=== PATIENT | female | born 1975 | race Caucasian/White ===

== ENCOUNTER 2017-11-02 04:18 | Emergency (ER) | payer SELFPAY ==
[~2017-11-02 04:18] MED LIST: OFLO5DRO45 OT
--- NOTE | 2017-11-02 04:22 | ER Report ---
History and Physical Time Seen By MD: 04:22 HPI/ROS CHIEF COMPLAINT: Lower abdominal pain HISTORY OF PRESENT ILLNESS: 42-year-old female presents ambulatory to the ER complaining of lower back pain. She started her menstrual period 2 days ago. She's been trying to get with her . She did a home test at home yesterday, which was negative. Patient notes severe crampy lower abdominal pain radiating to her back. She notes some dysuria. She's had no fever. She's had nausea but no vomiting. REVIEW OF SYSTEMS: Respiratory: No cough, no dyspnea. Cardiovascular: No chest pain, no palpitations. Gastrointestinal: As above Musculoskeletal: As above Allergies: Coded Allergies: No Known Drug Allergies (Unverified , 11/02/17) Home Meds Active Scripts Lisinopril (LISINOPRIL) 10 Mg Tablet, 10 MG PO QDAY for BP control, #30 TAB Prov:EDY MAR DO 11/02/17 Ondansetron (ZOFRAN ODT) 4 Mg Tab.rapdis, 4 MG PO every 6 hours Y for NAUSEA/ VOMITING, #10 TAB TAKE 1 TABLET BY MOUTH EVERY 12 HOURS Prov:EDY MAR DO 11/02/17 Hydrocodone Bit/Acetaminophen (NORCO 5-325 TABLET) 1 Each Tablet, 1-2 EACH PO Q4H Y for PAIN, #12 TAB Prov:EDY MAR DO 11/02/17 Cephalexin 500 Mg Tab (KEFLEX 500 MG TAB) 500 Mg Tablet, 500 MG PO TID for infection, #28 TAB Prov:EDY MAR DO 11/02/17 Reported Medications Venlafaxine Hcl (EFFEXOR XR) 150 Mg Cap.er.24h, 150 MG PO QDAY 11/02/17 Discontinued Scripts Ofloxacin (OFLOXACIN) 5 Ml Drops, 5 DROP OT BID for 3 Days, #1 BOT 0 Refills 5 drops to left ear twice daily x3 days. Prov:MIGUEL CARMONA DNP, [facility] 06/16/17 Past Medical/Surgical History Hypertension, depression Reviewed Nurses Notes: Yes Old Medical Records Reviewed: Yes Smoking Status: Never Smoker Constitutional Vital Sign - Last 24 Hours 11/02/17 11/02/17 11/02/17 11/02/17 04:22 04:33 04:42 04:48 Temp 98.0 Pulse 95 86 77 Resp 24 B/P (MAP) 204/134 174/116 (135) Pulse Ox 97 97 97 O2 Delivery Room Air 11/02/17 11/02/17 11/02/17 11/02/17 05:00 05:03 05:10 05:15 Pulse 72 74 B/P (MAP) 185/114 (137) 189/122 (144) Pulse Ox 95 92 11/02/17 11/02/17 11/02/17 11/02/17 05:34 05:39 05:44 05:49 Pulse ??? 84 ??? B/P (MAP) 207/122 (150) 147/92 (110) Pulse Ox 97 95 96 11/02/17 11/02/17 05:54 06:07 Pulse 87 85 Resp 16 B/P (MAP) 147/86 (106) Pulse Ox 96 92 O2 Delivery Room Air Physical Exam General Appearance: The patient is alert, has no immediate need for airway protection and no current signs of toxicity. Vital signs stable, afebrile, pulse ox normal Eyes: Pupils equal and round no injection. Respiratory: Chest is non tender, lungs are clear to auscultation. Cardiac: regular rate and rhythm Gastrointestinal: Abdomen is soft, mild bilateral lower quadrant tenderness, no rebound or guarding, bowel sounds intact no masses Musculoskeletal: Neck: Neck is supple and non tender. Extremities have full range of motion and are non tender. Skin: No rashes or lesions. DIFFERENTIAL DIAGNOSIS: After history and physical exam differential diagnosis was considered for abdominal pain including but not limited to appendicitis, cholecystitis, gastritis and urinary tract infection. Additionally,abdominal pain in a female including but not limited to ovarian cyst, pelvic inflammatory disease, ovarian torsion, urinary tract infection, dysmenorrhea and appendicitis. Medical Decision Making Data Points Result Diagram: 11/02/17 0430 11/02/17 0430 Laboratory Hematology Test 11/02/17 04:22 11/02/17 04:30 Urine Color Conce[place]ion Urine Clarity Slightly-cloudy Urine pH 5.0 pH (4.8-9.5) Urine Specific [place] 1.026 Urine Protein 30 mg/dL (NEGATIVE) Urine Glucose (UA) Negative mg/dL (NEGATIVE) Urine Ketones Negative mg/dL (NEGATIVE) Urine Blood Large (NEGATIVE) Urine Nitrite Negative (NEGATIVE) Urine Bilirubin Negative (NEGATIVE) Urine Urobilinogen Negative mg/dL (0.2-1.9) Urine Leukocyte Esterase Moderate (NEGATIVE) Urine RBC 344 /HPF (0-2/HPF) Urine WBC 35 /HPF (0-5/HPF) Urine Squamous Epithelial Cells Many /LPF (</=FEW) Urine Bacteria Negative /HPF (NONE-FEW) Urine Mucus Few /HPF (NONE-FEW) Red Blood Count 4.75 M/uL (4.17-5.56) Mean Corpuscular Volume 85.8 fL (80.0-96.0) Mean Corpuscular Hemoglobin 30.3 pg (26.0-33.0) Mean Corpuscular Hemoglobin Concent 35.3 g/dL (32.0-36.0) Red Cell Distribution Width 14.3 % (11.5-14.5) Mean Platelet Volume 8.4 fL (7.2-11.1) Neutrophils (%) (Auto) 47.9 % (39.4-72.5) Lymphocytes (%) (Auto) 44.6 % (17.6-49.6) Monocytes (%) (Auto) 4.2 % (4.1-12.4) Eosinophils (%) (Auto) 2.1 % (0.4-6.7) Basophils (%) (Auto) 1.2 % (0.3-1.4) Nucleated RBC Relative Count (auto) 0.1 /100WBC Neutrophils # (Auto) 4.9 K/uL (2.0-7.4) Lymphocytes # (Auto) 4.6 K/uL (1.3-3.6) Monocytes # (Auto) 0.4 K/uL (0.3-1.0) Eosinophils # (Auto) 0.2 K/uL (0.0-0.5) Basophils # (Auto) 0.1 K/uL (0.0-0.1) Nucleated RBC Absolute Count (auto) 0.01 K/uL Prothrombin Time 12.8 seconds (12.0-14.4) Prothromb Time International Ratio 0.97 Activated Partial Thromboplast Time 34 seconds (23-35) Sodium Level 141 mmol/L (137-145) Potassium Level 3.5 mmol/L (3.5-5.0) Chloride Level 102 mmol/L (98-107) Carbon Dioxide Level 24 mmol/L (22-31) Blood Urea Nitrogen 12 mg/dl (7-18) Creatinine 0.80 mg/dl (0.52-1.04) Glomerular Filtration Rate Calc > 60.0 Random Glucose 106 mg/dl (75-110) Calcium Level 10.0 mg/dl (8.4-10.2) Total Bilirubin 0.4 mg/dl (0.2-1.3) Aspartate Amino Transf (AST/SGOT) 29 U/L (0-35) Alanine Aminotransferase (ALT/SGPT) 39 U/L (0-56) Alkaline Phosphatase 122 U/L (0-126) Total Protein 8.2 gm/dl (6.3-8.2) Albumin 4.6 g/dl (3.5-5.0) Amylase Level 83 U/L (0-110) Lipase 139 U/L (23-300) Human Chorionic Gonadotropin, Qual Negative (NEGATIVE) Chemistry Test 11/02/17 04:22 11/02/17 04:30 Urine Color [place] Urine Clarity Slightly-cloudy Urine pH 5.0 pH (4.8-9.5) Urine Specific [place] 1.026 Urine Protein 30 mg/dL (NEGATIVE) Urine Glucose (UA) Negative mg/dL (NEGATIVE) Urine Ketones Negative mg/dL (NEGATIVE) Urine Blood Large (NEGATIVE) Urine Nitrite Negative (NEGATIVE) Urine Bilirubin Negative (NEGATIVE) Urine Urobilinogen Negative mg/dL (0.2-1.9) Urine Leukocyte Esterase Moderate (NEGATIVE) Urine RBC 344 /HPF (0-2/HPF) Urine WBC 35 /HPF (0-5/HPF) Urine Squamous Epithelial Cells Many /LPF (</=FEW) Urine Bacteria Negative /HPF (NONE-FEW) Urine Mucus Few /HPF (NONE-FEW) White Blood Count 10.3 k/uL (4.5-11.0) Red Blood Count 4.75 M/uL (4.17-5.56) Hemoglobin 14.4 g/dL (12.0-16.0) Hematocrit 40.7 % (34.0-47.0) Mean Corpuscular Volume 85.8 fL (80.0-96.0) Mean Corpuscular Hemoglobin 30.3 pg (26.0-33.0) Mean Corpuscular Hemoglobin Concent 35.3 g/dL (32.0-36.0) Red Cell Distribution Width 14.3 % (11.5-14.5) Platelet Count 356 K/uL (150-450) Mean Platelet Volume 8.4 fL (7.2-11.1) Neutrophils (%) (Auto) 47.9 % (39.4-72.5) Lymphocytes (%) (Auto) 44.6 % (17.6-49.6) Monocytes (%) (Auto) 4.2 % (4.1-12.4) Eosinophils (%) (Auto) 2.1 % (0.4-6.7) Basophils (%) (Auto) 1.2 % (0.3-1.4) Nucleated RBC Relative Count (auto) 0.1 /100WBC Neutrophils # (Auto) 4.9 K/uL (2.0-7.4) Lymphocytes # (Auto) 4.6 K/uL (1.3-3.6) Monocytes # (Auto) 0.4 K/uL (0.3-1.0) Eosinophils # (Auto) 0.2 K/uL (0.0-0.5) Basophils # (Auto) 0.1 K/uL (0.0-0.1) Nucleated RBC Absolute Count (auto) 0.01 K/uL Prothrombin Time 12.8 seconds (12.0-14.4) Prothromb Time International Ratio 0.97 Activated Partial Thromboplast Time 34 seconds (23-35) Glomerular Filtration Rate Calc > 60.0 Calcium Level 10.0 mg/dl (8.4-10.2) Total Bilirubin 0.4 mg/dl (0.2-1.3) Aspartate Amino Transf (AST/SGOT) 29 U/L (0-35) Alanine Aminotransferase (ALT/SGPT) 39 U/L (0-56) Alkaline Phosphatase 122 U/L (0-126) Total Protein 8.2 gm/dl (6.3-8.2) Albumin 4.6 g/dl (3.5-5.0) Amylase Level 83 U/L (0-110) Lipase 139 U/L (23-300) Human Chorionic Gonadotropin, Qual Negative (NEGATIVE) Coagulation Test 11/02/17 04:30 Prothrombin Time 12.8 seconds Prothromb Time International Ratio 0.97 Activated Partial Thromboplast Time 34 seconds Urinalysis Test 11/02/17 04:22 Urine Color [place] Urine Clarity Slightly-cloudy Urine pH 5.0 pH (4.8-9.5) Urine Specific [place] 1.026 Urine Protein 30 mg/dL (NEGATIVE) Urine Glucose (UA) Negative mg/dL (NEGATIVE) Urine Ketones Negative mg/dL (NEGATIVE) Urine Blood Large (NEGATIVE) Urine Nitrite Negative (NEGATIVE) Urine Bilirubin Negative (NEGATIVE) Urine Urobilinogen Negative mg/dL (0.2-1.9) Urine Leukocyte Esterase Moderate (NEGATIVE) Urine RBC 344 /HPF (0-2/HPF) Urine WBC 35 /HPF (0-5/HPF) Urine Squamous Epithelial Cells Many /LPF (</=FEW) Urine Bacteria Negative /HPF (NONE-FEW) Urine Mucus Few /HPF (NONE-FEW) ED Course/Re-evaluation Clinical Indication for ER IV: Hydration, IV Access ED Course Patient was admitted to an examination room. H&P was done. The differential diagnoses was considered. On clinical examination. Patient has a benign nonsurgical abdomen. Patient's diagnostic studies show normal white blood cell count, normal H&H, normal LFTs and lipase. Her urinalysis shows a hint of infection. Serum is negative. Patient's treated with IV fluid hydration, Toradol and Dilaudid. Her results are reviewed with her. Patient advised to follow-up with [facility] for continued dysfunctional uterine bleeding, dysmenorrhea. Patient be treated for urinary tract infection. Decision to Disposition Date: Nov 02, 2017 Decision to Disposition Time: 05:11 Depart Departure Latest Vital Signs Vital Signs Date Time Temp Pulse Resp B/P (MAP) Pulse Ox O2 Delivery O2 Flow Rate FiO2 11/02/17 06:07 85 16 147/86 (106) 92 Room Air 11/02/17 04:22 98.0 Impression: Primary Impression: Dysmenorrhea Additional Impressions: Urinary tract infection Hypertension Condition: Improved Disposition: HOME OR SELF-CARE Referrals: ANTONETTE GRAY (PCP) DERICK BALDERRAMA MD New Scripts Lisinopril (LISINOPRIL) 10 Mg Tablet 10 MG PO QDAY for BP control, #30 TAB Prov: EDY MAR DO 11/02/17 Ondansetron (ZOFRAN ODT) 4 Mg Tab.rapdis 4 MG PO every 6 hours Y for NAUSEA/VOMITING, #10 TAB TAKE 1 TABLET BY MOUTH EVERY 12 HOURS Prov: EDY MAR 11/02/17 Hydrocodone Bit/Acetaminophen (NORCO 5-325 TABLET) 1 Each Tablet 1-2 EACH PO Q4H Y for PAIN, #12 TAB Prov: EDY MAR 11/02/17 Cephalexin 500 Mg Tab (KEFLEX 500 MG TAB) 500 Mg Tablet 500 MG PO TID for infection, #28 TAB Prov: EDY MAR 11/02/17 Patient Instructions: Abdominal Pain (ED), Dysmenorrhea (ED), Urinary Tract Infection in Women (ED) Additional Instructions: Take ibuprofen 200 mg 3 tablets 3 times a day for inflammatory pain relief Take antibiotics until gone Follow-up with your primary care and [facility] if your symptoms do not improve in 3 -5 days Problem Qualifiers Additional Impressions: Urinary tract infection Urinary tract infection type: acute cystitis Hematuria presence: with hematuria Qualified Codes: N30.01 - Acute cystitis with hematuria Hypertension Hypertension type: unspecified Qualified Codes: I10 - Essential (primary) hypertension EDY MAR Eder GONZALEZ Nov 02, 2017 04:22
[2017-11-02] MEDS ORDERED: NS(*) 0.9% 1000 ML BAG 1,000 ML IV ONE (04:27)
[2017-11-02] MEDS ORDERED: VENL150C61 PO (04:29)
[2017-11-02] MEDS ORDERED: KETOROLAC 30 MG/ML VIAL IVP ONE (04:30)
[2017-11-02] MEDS ORDERED: fentaNYL CITR 100 MCG/2 ML AMP IVP ONE (04:30)
[2017-11-02] MEDS ORDERED: ONDANSETRON 4 MG/2 ML VIAL IVP ONE (04:30)
[2017-11-02 04:44] LABS: PLATELET COUNT, AUTOMATED 356 K/uL (150-450)
[2017-11-02 04:45] LABS: INR 0.97
[2017-11-02] MEDS ORDERED: CEPH500T7 PO (05:17)
[2017-11-02] MEDS ORDERED: LISI-362 PO (05:17)
[2017-11-02] MEDS ORDERED: ONDA4TAB PO (05:17)
[2017-11-02] MEDS ORDERED: HYDR-4309 PO (05:17)
[2017-11-02] MEDS ORDERED: hydrALAZINE HCL 20 MG/ML VIAL IVP ONE (05:25)
[2017-11-02] MEDS ORDERED: CEPHALEXIN MONO 500 MG CAP PO ONE (05:25)
[2017-11-02] MEDS ORDERED: ONDANSETRON 4 MG ODT TH SL ONE (05:25)
[2017-11-02] MEDS ORDERED: ACET/HYDROC 5/325MG TH ER ONLY 2 TAB/BOTTLE PO ONE (05:25)
[2017-11-02] MEDS ORDERED: HYDROmorphone* 1 MG/ML 1 MG/ML ML IVP ONE (05:45)
[2017-11-02 06:07] VITALS: BP 147/86
== END 2017-11-02 06:05 | disposition home or self-care (01) ==
LOC: ER 04:24
DX: N94.6 Dysmenorrhea, unspecified (principal); N30.01 Acute cystitis with hematuria; I10 Essential (primary) hypertension
CPT/HCPCS: 81001; 82150; 83690; 84703; 85025; 85610; 85730; 87088; 96361; 96374; 96375; 99284; J0360; J1170; J1885; J2405; J3010; J7030; S0119; 82040; 82247; 82310; 82374; 82435; 82565; 82947; 84075; 84132; 84155; 84295; 84450; 84460; 84520

== ENCOUNTER 2018-06-04 13:17 | Emergency (ER) | payer SELFPAY ==
[~2018-06-04 13:17] MED LIST changes: +CEPH500T7 PO; +HYDR-653 PO; +LISI-362 PO; +ONDA4TAB PO; +VENL150C61 PO
--- NOTE | 2018-06-04 13:29 | ER Report ---
History and Physical Time Seen By MD: 13:29 HPI/ROS CHIEF COMPLAINT: Groin pain HISTORY OF PRESENT ILLNESS: This is a 42-year-old female who presents to the emergency department for lower abdominal pain, nausea and diarrhea. Patient states over the last several months she's had diarrhea with intermittent abdominal pain, typically in the pelvic area. Now she has right groin pain which has been increasing in intensity over the last couple of days. Today she states the pain is so severe that she decided to come in for further evaluation. The groin pain is like "jolts of lightning" and will shoot down the front of her right leg. Patient has been seen by her primary care provider couple of times for the abdominal pain however doesn't sound like any blood work or imaging has been done. No blood in the stool. No fevers or chills. No headaches. No rashes. No chest pain or shortness of breath. REVIEW OF SYSTEMS: Constitutional: No fever, no chills. Eyes: No discharge. ENT: No sore throat. Cardiovascular: No chest pain, no palpitations. Respiratory: No cough, no shortness of breath. Gastrointestinal: As above. Genitourinary: No hematuria. Musculoskeletal: As above. Skin: No rashes. Neurological: No headache. Allergies: Coded Allergies: No Known Drug Allergies (Unverified , 06/04/18) Home Meds Active Scripts Ondansetron Hcl (ZOFRAN) 4 Mg Tablet, 4 MG PO Q4-6H PRN for prn, #20 TAB Prov:PAUL HILL [facility]- 06/04/18 Lisinopril (LISINOPRIL) 10 Mg Tablet, 10 MG PO QDAY for BP control, #30 TAB Prov:EDY MAR DO 11/02/17 Reported Medications Venlafaxine Hcl (EFFEXOR XR) 150 Mg Cap.er.24h, 150 MG PO QDAY 11/02/17 Discontinued Scripts Ondansetron (ZOFRAN ODT) 4 Mg Tab.rapdis, 4 MG PO every 6 hours PRN for NAUSEA/VOMITING, #10 TAB TAKE 1 TABLET BY MOUTH EVERY 12 HOURS Prov:EDY MAR DO 11/02/17 Hydrocodone Bit/Acetaminophen (NORCO 5-325 TABLET) 1 Each Tablet, 1-2 EACH PO Q4H PRN for PAIN, #12 TAB Prov:EDY MAR DO 11/02/17 Cephalexin 500 Mg Tab (KEFLEX 500 MG TAB) 500 Mg Tablet, 500 MG PO TID for infection, #28 TAB Prov:EDY MAR DO 11/02/17 Past Medical/Surgical History The patient has a past medical and surgical history of hypertension, asthma, diarrhea, constipation, 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 Reviewed Nurses Notes: Yes Smoking Status: Never Smoker Constitutional Vital Sign - Last 24 Hours 06/04/18 06/04/18 06/04/18 06/04/18 13:17 13:32 13:34 13:35 Temp 98.2 Pulse ? 91 Resp 16 B/P (MAP) 151/105 (120) 151/105 Pulse Ox 96 O2 Delivery Room Air 06/04/18 06/04/18 06/04/18 06/04/18 13:47 14:00 14:02 14:17 Pulse ??? 85 77 B/P (MAP) 135/99 (111) Pulse Ox 97 97 06/04/18 06/04/18 06/04/18 06/04/18 14:30 14:32 14:47 14:52 Pulse 73 74 ??? B/P (MAP) 140/89 (106) Pulse Ox 95 95 06/04/18 06/04/18 06/04/18 06/04/18 15:00 15:07 15:22 15:34 Pulse ? B/P (MAP) ???/??? (1665) 124/90 (101) 06/04/18 06/04/18 15:37 16:00 Pulse 81 B/P (MAP) 139/102 (114) Pulse Ox 89 Physical Exam General Appearance: The patient is alert, has no immediate need for airway protection and no signs of toxicity. Eyes: Pupils equal and round no pallor or injection. ENT, Mouth: Mucous membranes are moist. Respiratory: There are no retractions, lungs are clear to auscultation. Cardiovascular: Regular rate and rhythm, no murmurs, clicks or rubs. Gastrointestinal: Abdomen is very round, soft tenderness to the right and left lower quadrants however there is more pain to the right lower quadrant with palpation. No rebound tenderness. No palpable lymphadenopathy. no masses, bowel sounds normal. Neurological: Alert and oriented 4. Moving all extremities. Following all commands. No focal neuro deficits. Skin: Warm and dry, no rashes. Musculoskeletal: Neck is supple non tender. Extremities are nontender, nonswollen and have full range of motion. DIFFERENTIAL DIAGNOSIS: After history and physical exam differential diagnosis was considered for abdominal pain in a female including but not limited to ovarian cyst, pelvic inflammatory disease, ovarian torsion, urinary tract infection, and appendicitis. Medical Decision Making Data Points Result Diagram: 06/04/18 1355 06/04/18 1355 Laboratory Hematology Test 06/04/18 00:00 06/04/18 13:55 Urine HCG, Qualitative Negative (NEGATIVE) Red Blood Count 4.59 M/uL (4.17-5.56) Mean Corpuscular Volume 89.0 fL (80.0-96.0) Mean Corpuscular Hemoglobin 30.7 pg (26.0-33.0) Mean Corpuscular Hemoglobin Concent 34.5 g/dL (32.0-36.0) Red Cell Distribution Width 13.5 % (11.5-14.5) Mean Platelet Volume 8.2 fL (7.2-11.1) Neutrophils (%) (Auto) 56.1 % (39.4-72.5) Lymphocytes (%) (Auto) 38.3 % (17.6-49.6) Monocytes (%) (Auto) 3.6 % (4.1-12.4) Eosinophils (%) (Auto) 1.2 % (0.4-6.7) Basophils (%) (Auto) 0.8 % (0.3-1.4) Nucleated RBC Relative Count (auto) 0.0 /100WBC Neutrophils # (Auto) 5.0 K/uL (2.0-7.4) Lymphocytes # (Auto) 3.4 K/uL (1.3-3.6) Monocytes # (Auto) 0.3 K/uL (0.3-1.0) Eosinophils # (Auto) 0.1 K/uL (0.0-0.5) Basophils # (Auto) 0.1 K/uL (0.0-0.1) Nucleated RBC Absolute Count (auto) 0.00 K/uL Urine Color Yellow Urine Clarity Slightly-cloudy Urine pH 6.0 pH (4.8-9.5) Urine Specific [place] 1.018 Urine Protein Negative mg/dL (NEGATIVE) Urine Glucose (UA) Negative mg/dL (NEGATIVE) Urine Ketones Negative mg/dL (NEGATIVE) Urine Blood Negative (NEGATIVE) Urine Nitrite Negative (NEGATIVE) Urine Bilirubin Negative (NEGATIVE) Urine Urobilinogen Negative mg/dL (0.2-1.9) Urine Leukocyte Esterase Trace (NEGATIVE) Urine RBC 1 /HPF (0-2/HPF) Urine WBC 1 /HPF (0-5/HPF) Urine Squamous Epithelial Cells Many /LPF (</=FEW) Urine Transitional Epithelial Cells Few /LPF (NONE-FEW) Urine Bacteria Few /HPF (NONE-FEW) Urine Mucus Few /HPF (NONE-FEW) Sodium Level 139 mmol/L (137-145) Potassium Level 4.0 mmol/L (3.5-5.0) Chloride Level 105 mmol/L (98-107) Carbon Dioxide Level 22 mmol/L (22-31) Blood Urea Nitrogen 9 mg/dl (7-18) Creatinine 0.60 mg/dl (0.52-1.04) Glomerular Filtration Rate Calc > 60.0 Random Glucose 111 mg/dl (75-110) Calcium Level 10.0 mg/dl (8.4-10.2) Total Bilirubin 0.4 mg/dl (0.2-1.3) Aspartate Amino Transf (AST/SGOT) 24 U/L (0-35) Alanine Aminotransferase (ALT/SGPT) 33 U/L (0-56) Alkaline Phosphatase 86 U/L (0-126) Total Protein 7.9 g/dl (6.3-8.2) Albumin 4.4 g/dl (3.5-5.0) Chemistry Test 06/04/18 00:00 06/04/18 13:55 Urine HCG, Qualitative Negative (NEGATIVE) White Blood Count 8.8 k/uL (4.5-11.0) Red Blood Count 4.59 M/uL (4.17-5.56) Hemoglobin 14.1 g/dL (12.0-16.0) Hematocrit 40.8 % (34.0-47.0) Mean Corpuscular Volume 89.0 fL (80.0-96.0) Mean Corpuscular Hemoglobin 30.7 pg (26.0-33.0) Mean Corpuscular Hemoglobin Concent 34.5 g/dL (32.0-36.0) Red Cell Distribution Width 13.5 % (11.5-14.5) Platelet Count 373 K/uL (150-450) Mean Platelet Volume 8.2 fL (7.2-11.1) Neutrophils (%) (Auto) 56.1 % (39.4-72.5) Lymphocytes (%) (Auto) 38.3 % (17.6-49.6) Monocytes (%) (Auto) 3.6 % (4.1-12.4) Eosinophils (%) (Auto) 1.2 % (0.4-6.7) Basophils (%) (Auto) 0.8 % (0.3-1.4) Nucleated RBC Relative Count (auto) 0.0 /100WBC Neutrophils # (Auto) 5.0 K/uL (2.0-7.4) Lymphocytes # (Auto) 3.4 K/uL (1.3-3.6) Monocytes # (Auto) 0.3 K/uL (0.3-1.0) Eosinophils # (Auto) 0.1 K/uL (0.0-0.5) Basophils # (Auto) 0.1 K/uL (0.0-0.1) Nucleated RBC Absolute Count (auto) 0.00 K/uL Urine Color Yellow Urine Clarity Slightly-cloudy Urine pH 6.0 pH (4.8-9.5) Urine Specific [place] 1.018 Urine Protein Negative mg/dL (NEGATIVE) Urine Glucose (UA) Negative mg/dL (NEGATIVE) Urine Ketones Negative mg/dL (NEGATIVE) Urine Blood Negative (NEGATIVE) Urine Nitrite Negative (NEGATIVE) Urine Bilirubin Negative (NEGATIVE) Urine Urobilinogen Negative mg/dL (0.2-1.9) Urine Leukocyte Esterase Trace (NEGATIVE) Urine RBC 1 /HPF (0-2/HPF) Urine WBC 1 /HPF (0-5/HPF) Urine Squamous Epithelial Cells Many /LPF (</=FEW) Urine Transitional Epithelial Cells Few /LPF (NONE-FEW) Urine Bacteria Few /HPF (NONE-FEW) Urine Mucus Few /HPF (NONE-FEW) Glomerular Filtration Rate Calc > 60.0 Calcium Level 10.0 mg/dl (8.4-10.2) Total Bilirubin 0.4 mg/dl (0.2-1.3) Aspartate Amino Transf (AST/SGOT) 24 U/L (0-35) Alanine Aminotransferase (ALT/SGPT) 33 U/L (0-56) Alkaline Phosphatase 86 U/L (0-126) Total Protein 7.9 g/dl (6.3-8.2) Albumin 4.4 g/dl (3.5-5.0) Urinalysis Test 06/04/18 00:00 06/04/18 13:55 Urine HCG, Qualitative Negative (NEGATIVE) Urine Color Yellow Urine Clarity Slightly-cloudy Urine pH 6.0 pH (4.8-9.5) Urine Specific [place] 1.018 Urine Protein Negative mg/dL (NEGATIVE) Urine Glucose (UA) Negative mg/dL (NEGATIVE) Urine Ketones Negative mg/dL (NEGATIVE) Urine Blood Negative (NEGATIVE) Urine Nitrite Negative (NEGATIVE) Urine Bilirubin Negative (NEGATIVE) Urine Urobilinogen Negative mg/dL (0.2-1.9) Urine Leukocyte Esterase Trace (NEGATIVE) Urine RBC 1 /HPF (0-2/HPF) Urine WBC 1 /HPF (0-5/HPF) Urine Squamous Epithelial Cells Many /LPF (</=FEW) Urine Transitional Epithelial Cells Few /LPF (NONE-FEW) Urine Bacteria Few /HPF (NONE-FEW) Urine Mucus Few /HPF (NONE-FEW) EKG/Imaging Imaging EXAMINATION: CT abdomen and pelvis with contrast COMPARISON: None. HISTORY: Lower abdominal and right groin pain. PROCEDURE: Multiplanar contrast enhanced CT of the abdomen and pelvis with 75 mL intravenous Isovue 370. One of the following dose optimization techniques was utilized in the performance of this exam: Automated exposure control; adjustment of the mA and/or kV according to the patient's size; or use of an iterative reconstruction technique. Specific details can be referenced in the facility's radiology CT exam operational policy. FINDINGS: Visualized thorax: Negative. Liver: Negative. Gallbladder and biliary system: Negative Spleen: Negative. Pancreas: Negative. Adrenal glands: Negative. Kidneys and bladder: No renal mass or evidence of an obstructive uropathy. Urinary bladder is unremarkable. Vessels: Within normal limits. Bowel and mesentery: Stomach and small bowel are within normal limits. Appendectomy. Small amount of stool in the colon. No bowel or mesenteric inf lammation. Pelvic organs: Retroflexed uterus. Left ovary corpus luteum suggestive of a recently ruptured follicle. No acute findings. Lymph nodes: No adenopathy. Free air/free fluid: None. Abdominal wall and osseous structures: A small amount of fat extends through the internal inguinal ring bilaterally. The herniated fat is unremarkable. Small fat-containing umbilical hernia. Lumbosacral junction advanced facet arthropathy with moderately advanced degenerative disc disease at L5-S1. This results in 7 mm of degenerative anterolisthesis and advanced canal stenosis at L5-S1. IMPRESSION: 1. Bilateral very small fat-containing indirect inguinal hernias. 2. L5-S1 7 mm of degenerative anterolisthesis with advanced canal stenosis. Report Dictated By: Rohan Garcia MD at 06/04/2018 3:45 PM Report E-Signed By: Rohan Garcia MD at 06/04/2018 3:54 PM [id number] ED Course/Re-evaluation Clinical Indication for ER IV: Hydration, IV Access ED Course The patient was admitted to a room. A history and physical were obtained. Differential diagnoses were considered. IV was started. A CBC, CMP were obtained. A 1 L normal saline bolus was given. The patient was given 4 mg IV Zofran, 4 mg IV morphine. Patient did have significant relief with the discomfort. Lab studies unremarkable. Negative UA.the CT of the abdomen pelvis showing Bilateral very small fat-containing indirect inguinal hernias. I did review these results with the patient. I did speak with Dr. Patterson regarding the CT results, he does not recommend surgery for the internal hernias due to the size of the hernias. I did recommend that the patient follows up with Dr. Patterson for definitive care of her chronic diarrhea, I also encouraged her to follow up with an AMORTIZATION SCHEDULE CLERK for her dysmenorrhea as well as her intermittent spotting. Patient expressed understanding and was discharged home. A prescription for stool study was sent home with the patient as well as a stool collection kit, the results will go to Antonette Benz. Decision to Disposition Date: Jun 04, 2018 Decision to Disposition Time: 16:39 Depart Departure Latest Vital Signs Vital Signs Date Time Temp Pulse Resp B/P (MAP) Pulse Ox O2 Delivery O2 Flow Rate FiO2 06/04/18 16:00 139/102 (114) 06/04/18 15:37 81 89 06/04/18 13:35 98.2 16 Room Air Impression: Primary Impression: Abdominal pain Additional Impression: Diarrhea Condition: Improved Disposition: HOME OR SELF-CARE Referrals: ANTONETTE BENZ (PCP) 1 Week LOI VALDES JOHN A MD New Scripts Ondansetron Hcl (ZOFRAN) 4 Mg Tablet 4 MG PO Q4-6H PRN for prn, #20 TAB Prov: PAUL HILLP- 06/04/18 Patient Instructions: Abdominal Pain (ED), Acute Diarrhea (ED) Additional Instructions: Your laboratory studies look good today. The CT does not show anything concerning, there are however bilateral, small, fat-containing inguinal hernia's, nothing that would require surgery. I would recommend following up with Dr. Alba's office, specifically for the GI symptoms you have been having, including diarrhea. I would also recommend establishing with Dr. Valdes, AMORTIZATION SCHEDULE CLERK for your intermittent vaginal spotting and painful menstrual cycles. Be sure to drink plenty of fluids. Get plenty of rest Take Zofran for nausea and vomiting. Take Ibuprofen or Tylenol as needed for pain. Return to the ED for any other concerns or worsening symptoms. Problem Qualifiers Primary Impression: Abdominal pain Abdominal location: lower abdomen, unspecified Qualified Codes: R10.30 - Lower abdominal pain, unspecified Additional Impression: Diarrhea Diarrhea type: unspecified type Qualified Codes: R19.7 - Diarrhea, unspecified PAUL HILLP- Jun 04, 2018 13:29
[2018-06-04] MEDS ORDERED: NS(*) 0.9% 1000 ML BAG 1,000 ML IV ONE (13:49)
[2018-06-04] MEDS ORDERED: ONDANSETRON 4 MG/2 ML VIAL IVP ONE (13:50)
[2018-06-04] MEDS ORDERED: MORPHINE 4 MG/ML SDV IVP ONE (13:50)
[2018-06-04 14:01] LABS: PLATELET COUNT, AUTOMATED 373 K/uL (150-450)
[2018-06-04] MEDS ORDERED: IOPAMIDOL 76% 75 ML INFUS BTL 75 ML ONE (14:06)
--- NOTE | 2018-06-04 15:58 | RADIOLOGY IMAGING REPORT ---
FACILITY: [facility] PATIENT NAME: Tammy Quinn : 1975 MR: [id number] V: [id number] EXAM DATE: ORDERING PHYSICIAN: PAUL HILL TECHNOLOGIST: [place] [facility] [place] Tammy Quinn : 1975 Visit/Account:[id number] Date of Sevice: 06/04/2018 EXAMINATION: CT abdomen and pelvis with contrast COMPARISON: None. HISTORY: Lower abdominal and right groin pain. PROCEDURE: Multiplanar contrast enhanced CT of the abdomen and pelvis with 75 mL intravenous Isovue 3 70. One of the following dose optimization techniques was utilized in the performance of this exam: A utomated exposure control; adjustment of the mA and/or kV according to the patient's size; or use of an iterative reconstruction technique. Specific details can be referenced in the facility's radiolo gy CT exam operational policy. FINDINGS: Visualized thorax: Negative. Liver: Negative. Gallbladder and biliary system: Negative Spleen: Negative. Pancreas: Negative. Adrenal glands: Negative. Kidneys and bladder: No renal mass or evidence of an obstructive uropathy. Urinary bladder is unrema rkable. Vessels: Within normal limits. Bowel and mesentery: Stomach and small bowel are within normal limits. Appendectomy. Small amount of stool in the colon. No bowel or mesenteric inflammation. Pelvic organs: Retroflexed uterus. Left ovary corpus luteum suggestive of a recently ruptured follicl e. No acute findings. Lymph nodes: No adenopathy. Free air/free fluid: None. Abdominal wall and osseous structures: A small amount of fat extends through the internal inguinal ri ng bilaterally. The herniated fat is unremarkable. Small fat-containing umbilical hernia. Lumbosacral junction advanced facet arthropathy with moderately advanced degenerative disc disease at L5-S1. Thi s results in 7 mm of degenerative anterolisthesis and advanced canal stenosis at L5-S1. IMPRESSION: 1. Bilateral very small fat-containing indirect inguinal hernias. 2. L5-S1 7 mm of degenerative anterolisthesis with advanced canal stenosis. Report Dictated By: Rohan Garcia MD at 06/04/2018 3:45 PM Report E-Signed By: Rohan Garcia MD at 06/04/2018 3:54 PM [id number]
[2018-06-04 16:00] VITALS: BP 139/102
[2018-06-04] MEDS ORDERED: ONDA4TAB97 PO (16:46)
== END 2018-06-04 16:56 | disposition home or self-care (01) ==
LOC: ER 13:38
DX: R10.30 Lower abdominal pain, unspecified (principal); R19.7 Diarrhea, unspecified
CPT/HCPCS: 74177; 81001; 81025; 85025; 87491; 87591; 96361; 96374; 96375; 99284; J2270; J2405; J7030; Q9967; 82040; 82247; 82310; 82374; 82435; 82565; 82947; 84075; 84132; 84155; 84295; 84450; 84460; 84520

== ENCOUNTER → 2018-06-07 | Outpatient (CLI) | payer SELFPAY ==
[~2018-06-07] MED LIST changes: +ONDA4TAB97 PO
== END ==
LOC: LAB 18:49
PROVIDERS: ATTEND Nurse Practitioner Family
DX: R10.9 Unspecified abdominal pain (principal); R19.7 Diarrhea, unspecified
CPT/HCPCS: 82274; 83630; 87045; 87177

== ENCOUNTER 2018-09-29 03:20 | Emergency (ER) | payer SELFPAY ==
[~2018-09-29 03:20] MED LIST changes: -NIFE-15 PO
--- NOTE | 2018-09-29 03:42 | ER Report ---
History and Physical Time Seen By MD: 03:41 Hx. of Stated Complaint: patient states that after taking a new medication nifedipine 30mg; states "I was cleaning the house and had to pee, went to the bathroom and got a head casey, went down stairs and just lost it." ems state that the patient was found on the floor face down, pulling her own hair and would not cooperate with ems, one possible pain medications were mentioned then she walked out onto the cart. (MINDA CABELLO MD) HPI/ROS CHIEF COMPLAINT: Headache and altered mental status HISTORY OF PRESENT ILLNESS: This is a 42-year-old female. She was brought to the ER by EMS. Called to this patient's home for patient with altered mental status, headache and collapse. She was in the bathroom, sitting on the toilet, when sudden onset of severe headache. She awoke her , and then when he was getting dressed to come to the hospital she collapsed. On arrival she is able to follow commands, has some stuttering to speech and slow to respond, but appears to do so appropriately. Denies any other pain other than headache, denies chest pain, abdominal pain, extremity or neck pain. Has no nausea or vomiting. Is not short of breath. As time goes on, she is less able to answer questions, worsening stuttering. Able to follow most commands, but delayed. Able to walk to bathroom with assistance. REVIEW OF SYSTEMS: Other than above, unable to obtain. (MINDA CABELLO MD) Allergies: Coded Allergies: No Known Drug Allergies (Unverified , 06/04/18) Home Meds Reported Medications Nifedipine (NIFEDIPINE ER) 30 Mg Tab.er.24, 30 MG PO QDAY 09/29/18 Venlafaxine Hcl (EFFEXOR XR) 150 Mg Cap.er.24h, 150 MG PO QDAY 11/02/17 Discontinued Scripts Ondansetron Hcl (ZOFRAN) 4 Mg Tablet, 4 MG PO Q4-6H PRN for prn, #20 TAB Prov:PAUL HILL INPATIENT PHARMACIST-BC 06/04/18 Lisinopril (LISINOPRIL) 10 Mg Tablet, 10 MG PO QDAY for BP control, #30 TAB Prov:EDY MAR DO 11/02/17 Reviewed Nurses Notes: Yes (MINDA CABELLO MD) Smoking Status: Never Smoker (MINDA CABELLO MD) Constitutional Vital Sign - Last 24 Hours 09/29/18 09/29/18 09/29/18 09/29/18 03:20 03:25 03:25 03:30 Temp 97.7 Pulse ??? 100 Resp 11 B/P (MAP) 151/105 (120) 156/111 156/111 (126) Pulse Ox 94 O2 Delivery Room Air 09/29/18 09/29/18 09/29/18 09/29/18 03:48 03:50 04:00 04:20 Pulse 232 123 Resp 22 27 B/P (MAP) 160/110 (127) 165/112 (129) Pulse Ox 98 09/29/18 09/29/18 09/29/18 09/29/18 04:30 04:35 05:00 05:00 Pulse 111 Resp 23 B/P (MAP) 177/114 (135) 165/103 (123) 161/103 (122) 161/103 (122) Pulse Ox 93 09/29/18 09/29/18 09/29/18 09/29/18 05:30 05:35 06:00 06:05 Pulse 95 ??? Resp 13 B/P (MAP) 152/95 (114) 144/92 (109) Pulse Ox 89 09/29/18 09/29/18 06:30 06:35 Pulse 84 Resp 28 B/P (MAP) 147/101 (116) Pulse Ox 90 Intake and Output 09/28/18 09/28/18 09/29/18 15:00 23:00 07:00 Output Total 450 ml Balance -450 ml (ROSALBA BUTTERFIELD MD) Physical Exam General Appearance: The patient is alert, able to tell us location, name, but not oriented to date. Eyes: Pupils are equal, round. Reactive to light. No pallor, injection or icterus. Extraocular movements are intact. Unable to test visual baxter. ENT: Mucous membranes are moist. Normal oral mucosa. Normal posterior oropharynx. Midline tongue. Normal tympanic membranes and canals. Neck: Supple and non tender. No lymphadenopathy. Respiratory: Lungs are clear to auscultation. There are no retractions or accessory muscle use. Cardiovascular: Regular rate and rhythm. No murmurs, gallops or rubs. Normal capillary refill. No edema. No carotid bruits. Gastrointestinal: Abdomen is soft and non tender. Nondistended. Normal active bowel sounds. No costovertebral angle tenderness with percussion. Neurological: Alert and oriented x3. Cranial nerves with eye exam as noted. No facial droop or weakness, normal facial sensation, midline tongue, symmetric palate elevation. Has normal sensation in the extremities, able to do all motor function, but slow to respond and a little shaky, but strength appears equal. Poor coordination, but is able to walk with assistance. Skin: Warm and diaphoretic. No rashes. Musculoskeletal: Extremities are nontender. No tenderness in palpation of the cervical, thoracic and lumbar spine. DIFFERENTIAL DIAGNOSIS: After history and physical exam, differential diagnosis was considered for altered mental status of uncertain significance, concern for stroke, intracranial bleeding, TIA, seizure, atypical headache syndrome, psychiatrically induced mental status and neurological changes. ([facility] [[email or web address]]IMNDA MD) Medical Decision Making Data Points Result Diagram: 09/29/18 0330 09/29/18 0330 Laboratory Hematology Test 09/29/18 03:30 09/29/18 04:56 09/29/18 05:22 Red Blood Count 4.72 M/uL (4.17-5.56) Mean Corpuscular Volume 89.4 fL (80.0-96.0) Mean Corpuscular Hemoglobin 30.7 pg (26.0-33.0) Mean Corpuscular Hemoglobin Concent 34.3 g/dL (32.0-36.0) Red Cell Distribution Width 13.8 % (11.5-14.5) Mean Platelet Volume 8.5 fL (7.2-11.1) Neutrophils (%) (Auto) 52.5 % (39.4-72.5) Lymphocytes (%) (Auto) 40.3 % (17.6-49.6) Monocytes (%) (Auto) 4.3 % (4.1-12.4) Eosinophils (%) (Auto) 2.2 % (0.4-6.7) Basophils (%) (Auto) 0.7 % (0.3-1.4) Nucleated RBC Relative Count (auto) 0.0 /100WBC Neutrophils # (Auto) 4.3 K/uL (2.0-7.4) Lymphocytes # (Auto) 3.3 K/uL (1.3-3.6) Monocytes # (Auto) 0.4 K/uL (0.3-1.0) Eosinophils # (Auto) 0.2 K/uL (0.0-0.5) Basophils # (Auto) 0.1 K/uL (0.0-0.1) Nucleated RBC Absolute Count (auto) 0.00 K/uL Prothrombin Time 11.8 seconds (12.0-14.4) Prothromb Time International Ratio 0.87 Activated Partial Thromboplast Time 34 seconds (23-35) Sodium Level 141 mmol/L (137-145) Potassium Level 3.3 mmol/L (3.5-5.0) Chloride Level 102 mmol/L (98-107) Carbon Dioxide Level 21 mmol/L (22-31) Blood Urea Nitrogen 11 mg/dl (7-18) Creatinine 0.70 mg/dl (0.52-1.04) Glomerular Filtration Rate Calc > 60.0 Random Glucose 125 mg/dl (75-110) Calcium Level 10.2 mg/dl (8.4-10.2) Total Bilirubin 0.3 mg/dl (0.2-1.3) Aspartate Amino Transf (AST/SGOT) 61 U/L (0-35) Alanine Aminotransferase (ALT/SGPT) 76 U/L (0-56) Alkaline Phosphatase 110 U/L (0-126) Total Protein 8.6 g/dl (6.3-8.2) Albumin 5.1 g/dl (3.5-5.0) Human Chorionic Gonadotropin, Qual Negative (NEGATIVE) Serum Alcohol < 10 mg/dl Urine Color Yellow Urine Clarity Cloudy Urine pH 8.0 pH (4.8-9.5) Urine Specific [place] 1.016 Urine Protein 30 mg/dL (NEGATIVE) Urine Glucose (UA) Negative mg/dL (NEGATIVE) Urine Ketones Negative mg/dL (NEGATIVE) Urine Blood Negative (NEGATIVE) Urine Nitrite Negative (NEGATIVE) Urine Bilirubin Negative (NEGATIVE) Urine Urobilinogen Negative mg/dL (0.2-1.9) Urine Leukocyte Esterase Negative (NEGATIVE) Urine RBC None /HPF (0-2/HPF) Urine WBC <1 /HPF (0-5/HPF) Urine Squamous Epithelial Cells Many /LPF (NONE-FEW) Urine Amorphous Crystals Few /HPF Urine Bacteria Few /HPF (NONE-FEW) Urine Mucus None /HPF (NONE-FEW) Urine Opiates Screen Negative Urine Barbiturates Screen Negative Ur Tricyclic Antidepressants Screen Negative Urine Phencyclidine Screen Negative Urine Amphetamines Screen Negative Urine Benzodiazepines Screen Negative Urine Cocaine Screen Negative Urine Cannabinoids Screen Negative Lactate 2.0 mmol/L (0.7-2.1) Chemistry Test 09/29/18 03:30 09/29/18 04:56 09/29/18 05:22 White Blood Count 8.2 k/uL (4.5-11.0) Red Blood Count 4.72 M/uL (4.17-5.56) Hemoglobin 14.5 g/dL (12.0-16.0) Hematocrit 42.2 % (34.0-47.0) Mean Corpuscular Volume 89.4 fL (80.0-96.0) Mean Corpuscular Hemoglobin 30.7 pg (26.0-33.0) Mean Corpuscular Hemoglobin Concent 34.3 g/dL (32.0-36.0) Red Cell Distribution Width 13.8 % (11.5-14.5) Platelet Count 383 K/uL (150-450) Mean Platelet Volume 8.5 fL (7.2-11.1) Neutrophils (%) (Auto) 52.5 % (39.4-72.5) Lymphocytes (%) (Auto) 40.3 % (17.6-49.6) Monocytes (%) (Auto) 4.3 % (4.1-12.4) Eosinophils (%) (Auto) 2.2 % (0.4-6.7) Basophils (%) (Auto) 0.7 % (0.3-1.4) Nucleated RBC Relative Count (auto) 0.0 /100WBC Neutrophils # (Auto) 4.3 K/uL (2.0-7.4) Lymphocytes # (Auto) 3.3 K/uL (1.3-3.6) Monocytes # (Auto) 0.4 K/uL (0.3-1.0) Eosinophils # (Auto) 0.2 K/uL (0.0-0.5) Basophils # (Auto) 0.1 K/uL (0.0-0.1) Nucleated RBC Absolute Count (auto) 0.00 K/uL Prothrombin Time 11.8 seconds (12.0-14.4) Prothromb Time International Ratio 0.87 Activated Partial Thromboplast Time 34 seconds (23-35) Glomerular Filtration Rate Calc > 60.0 Calcium Level 10.2 mg/dl (8.4-10.2) Total Bilirubin 0.3 mg/dl (0.2-1.3) Aspartate Amino Transf (AST/SGOT) 61 U/L (0-35) Alanine Aminotransferase (ALT/SGPT) 76 U/L (0-56) Alkaline Phosphatase 110 U/L (0-126) Total Protein 8.6 g/dl (6.3-8.2) Albumin 5.1 g/dl (3.5-5.0) Human Chorionic Gonadotropin, Qual Negative (NEGATIVE) Serum Alcohol < 10 mg/dl Urine Color Yellow Urine Clarity Cloudy Urine pH 8.0 pH (4.8-9.5) Urine Specific [place] 1.016 Urine Protein 30 mg/dL (NEGATIVE) Urine Glucose (UA) Negative mg/dL (NEGATIVE) Urine Ketones Negative mg/dL (NEGATIVE) Urine Blood Negative (NEGATIVE) Urine Nitrite Negative (NEGATIVE) Urine Bilirubin Negative (NEGATIVE) Urine Urobilinogen Negative mg/dL (0.2-1.9) Urine Leukocyte Esterase Negative (NEGATIVE) Urine RBC None /HPF (0-2/HPF) Urine WBC <1 /HPF (0-5/HPF) Urine Squamous Epithelial Cells Many /LPF (NONE-FEW) Urine Amorphous Crystals Few /HPF Urine Bacteria Few /HPF (NONE-FEW) Urine Mucus None /HPF (NONE-FEW) Urine Opiates Screen Negative Urine Barbiturates Screen Negative Ur Tricyclic Antidepressants Screen Negative Urine Phencyclidine Screen Negative Urine Amphetamines Screen Negative Urine Benzodiazepines Screen Negative Urine Cocaine Screen Negative Urine Cannabinoids Screen Negative Lactate 2.0 mmol/L (0.7-2.1) Coagulation Test 09/29/18 03:30 Prothrombin Time 11.8 seconds Prothromb Time International Ratio 0.87 Activated Partial Thromboplast Time 34 seconds Toxicology Test 09/29/18 03:30 09/29/18 04:56 Serum Alcohol < 10 mg/dl Urine Opiates Screen Negative Urine Barbiturates Screen Negative Ur Tricyclic Antidepressants Screen Negative Urine Phencyclidine Screen Negative Urine Amphetamines Screen Negative Urine Benzodiazepines Screen Negative Urine Cocaine Screen Negative Urine Cannabinoids Screen Negative Urinalysis Test 09/29/18 04:56 Urine Color Yellow Urine Clarity Cloudy Urine pH 8.0 pH (4.8-9.5) Urine Specific [place] 1.016 Urine Protein 30 mg/dL (NEGATIVE) Urine Glucose (UA) Negative mg/dL (NEGATIVE) Urine Ketones Negative mg/dL (NEGATIVE) Urine Blood Negative (NEGATIVE) Urine Nitrite Negative (NEGATIVE) Urine Bilirubin Negative (NEGATIVE) Urine Urobilinogen Negative mg/dL (0.2-1.9) Urine Leukocyte Esterase Negative (NEGATIVE) Urine RBC None /HPF (0-2/HPF) Urine WBC <1 /HPF (0-5/HPF) Urine Squamous Epithelial Cells Many /LPF (NONE-FEW) Urine Amorphous Crystals Few /HPF Urine Bacteria Few /HPF (NONE-FEW) Urine Mucus None /HPF (NONE-FEW) (ROSALBA BUTTERFIELD MD) EKG/Imaging EKG Interpretation 12 lead EKG: Rhythm: normal sinus rhythm, rate 87 [place]: normal QRS: normal ST segments: normal Imaging CT Head without contrast Indication: Altered mental status. Comparison: None available. Technique: Axial CT images were obtained through the brain from the skull base to the vertex without administration of IV contrast. One of the following dose optimization techniques was utilized in the performance of this exam: Automated exposure control; adjustment of the mA and/or kV according to the patient's size; or use of an iterative reconstruction technique. Specific details can be referenced in the facility's radiology CT exam operational policy. Findings: No evidence of mass, mass effect, or midline shift. No acute intracranial hemorrhage or acute territorial infarction. Skull is nonacute. Globes and orbits are normal. Mild mucosal thickening in the maxillary sinuses. The visualized paranasal sinuses and mastoid air spaces are otherwise clear. IMPRESSION: No acute intracranial abnormality. Report Dictated By: Jeff Hendrix MD at 09/29/2018 4:30 AM AP CHEST 09/29/2018 3:58 AM. INDICATION: Altered mental status. COMPARISON: None. FINDINGS: Lungs are well-expanded. There is no consolidation. No pleural effusion or pneumothorax. Heart size is normal. IMPRESSION: No acute abnormality. Report Dictated By: Jeff Hendrix MD at 09/29/2018 4:28 AM ADDENDUM #1 ADDENDUM: In rereview of the angiogram there is a punctate hypodensity within the right supraclinoid ICA, sagittal image 120 series 10, axial image 252 series 7. This finding may represent an artifact within the vessel. A tiny nonocclusive thrombus within the right supraclinoid ICA cannot be entirely excluded. Results were called to MINDA CABELLO on 09/29/2018 5:57 AM. Report Dictated By: Toi Burt MD at 09/29/2018 5:43 AM Report E-Signed By: Toi Burt MD at 09/29/2018 5:57 AM ORIGINAL REPORT EXAMINATION: CT head and neck angiogram HISTORY: Altered mental status TECHNIQUE: CT head and neck angiogram was performed following the iv injection 75 mL Isovue-370. Sagittal and coronal MPR and coronal and axial MIPS reformats generated. Stenosis of the internal carotid arteries calculated using NASCET criteria. One of the following dose optimization techniques was utilized in the performance of this exam: automated exposure control; adjustment of the mA and/or kV according to patient size; or use of iterative reconstruction technique. Specific details can be referenced in the facility's radiology CT exam operational policy. COMPARISON: Head CT same day FINDINGS: Aortic arch and great vessels: Conventional anatomy. Normal. Cervical Right CCA / ICA: Normal. Cervical Left CCA / ICA: Normal. Vertebro-basilar: Normal. Internal carotid arteries from the skull base through cavernous carotid arterie s: Normal. JUDY circulation: Normal. MCA circulation: Normal. [employer] circulation: Normal. PICA/AICA/superior cerebellar arteries: Normal. Venous sinuses and peripheral intracranial vasculature: Normal. Intracranial structures: Normal. Neck soft tissues: Subcentimeter right thyroid nodule is statistically benign. Hypodense musculature positioned adjacent to the left thyroid gland mimics thyroid nodularity, image 95. Upper chest: Normal. Head and neck osseous structures: No acute finding. IMPRESSION: Normal head and neck arterial vasculature without arterial thrombosis, stenosis, aneurysm or dissection. Results were called to MINDA CABELLO on 09/29/2018 5:28 AM. Report Dictated By: Toi Burt MD at 09/29/2018 5:12 AM (MINDA CABELLO MD) ED Course/Re-evaluation Clinical Indication for ER IV: Hydration, IV Access ED Course When patient arrived, workup for altered mental status was started. Patient did have severe elevated blood pressure with headache so there is a concern for intracranial bleed. Her situation deteriorated, initially exam as noted above but then starting to be unable to follow commands completely and interact fully. At this point CT scan was ordered and also asked for to a stroke to have neurology assist with the evaluation. CT scan was negative for acute bleed. NIH stroke scale was difficult to do completely. She appeared to have more of a psychogenic pattern to her stroke. Please see neurology's note for details on this. CT angiogram of the head and neck was recommended and obtained. While waiting for these results, the patient awoke. All she remembers is when she had the headache onset and woke her up. She does not remember anything since then. Repeat neuro exam at this time is negative. CTA of the head and neck show a question of small defect in the ICA that could represent artifact versus a very small nonocclusive clot. Discussed with the neurologist who recommended going ahead with MRI and MRA to define further. NIH stroke scale done along with neurology, unable to do full scale, would give the patient a score of 9 based on not being able to perform some of the activities. However pattern is more stroke mimic in origin than anything else and neurology agrees with this. Plan of care as noted above. Care turned over to Dr. Butterfield at shift change. ([facility] [[email or web address]]MINDA MD) ED Course Medical decision making 42-year-old female came in with vague non-specific neurological issues this patient was signed out to me by Dr. Waters pending MRI/MRA of the head and the neck these were both performed everything was negative her symptoms have completely resolved spoke to our hospitalist regarding admission and outpatient follow-up recommended outpatient echocardiogram I spoke to the family and they're agreeable to this I will put notification to the patient and have her follow-up with her primary care for out patient echocardiogram and return if symptoms change or worsen. 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 Patient could potentially also be a psychiatric or psychological component to this some type of potential conversion disorder unclear. Decision to Disposition Date: Sep 29, 2018 Decision to Disposition Time: 10:06 (ROSALBA BUTTERFIELD MD) Depart Departure Latest Vital Signs Vital Signs Date Time Temp Pulse Resp B/P (MAP) Pulse Ox O2 Delivery O2 Flow Rate FiO2 09/29/18 06:35 84 28 90 09/29/18 06:30 147/101 (116) 09/29/18 03:25 97.7 Room Air (ROSALBA BUTTERFIELD MD) Impression: Primary Impression: Neurologic abnormality Condition: Improved Disposition: HOME OR SELF-CARE Referrals: ANTONETTE GRAY (PCP) 5 Days Patient Instructions: Weakness (ED) MINDA CABELLO MD Sep 29, 2018 03:42 ROSALBA BUTTERFIELD MD Sep 29, 2018 10:08
[2018-09-29] MEDS ORDERED: NIFE-15 PO (04:00)
[2018-09-29] MEDS ORDERED: NS(*) 0.9% 1000 ML BAG 1,000 ML IV ONE (04:00)
[2018-09-29 04:11] LABS: PLATELET COUNT, AUTOMATED 383 K/uL (150-450)
[2018-09-29 04:14] LABS: INR 0.87
--- NOTE | 2018-09-29 04:34 | RADIOLOGY IMAGING REPORT ---
FACILITY: [facility] PATIENT NAME: Tammy Quinn : 1975 MR: [id number] V: [id number] EXAM DATE: [id number] ORDERING PHYSICIAN: MINDA CABELLO TECHNOLOGIST: Location: [facility] [place] Patient: Tammy Quinn : 1975 Visit/Account:[id number] Date of Sevice: 09/29/2018 AP CHEST 09/29/2018 3:58 AM. INDICATION: Altered mental status. COMPARISON: None. FINDINGS: Lungs are well-expanded. There is no consolidation. No pleural effusion or pneumothorax. Heart size i s normal. IMPRESSION: No acute abnormality. Report Dictated By: Jeff Hendrix MD at 09/29/2018 4:28 AM Report E-Signed By: Jeff Hendrix MD at 09/29/2018 4:30 AM WSN:[id number]
--- NOTE | 2018-09-29 04:37 | RADIOLOGY IMAGING REPORT ---
FAC[place] [facility] [place]IENT NAME: Tammy Quinn : 1975 MR: [id number] V: [id number] EXAM DATE: [id number] ORDERING PHYSICIAN: MINDA CABELLO TECHNOLOGIST: Location: [facility] [place] Patient: Tammy Quinn : 1975 Visit/Account:[id number] Date of Sevice: 09/29/2018 CT Head without contrast Indication: Altered mental status. Comparison: None available. Technique: Axial CT images were obtained through the brain from the skull base to the vertex without administration of IV contrast. One of the following dose optimization techniques was utilized in th e performance of this exam: Automated exposure control; adjustment of the mA and/or kV according to t he patient's size; or use of an iterative reconstruction technique. Specific details can be referen leonel in the facility's radiology CT exam operational policy. Findings: No evidence of mass, mass effect, or midline shift. No acute intracranial hemorrhage or acute territorial infarction. Skull is nonacute. Globes and orbits are normal. Mild mucosal thickening in the maxillary sinuses. The visualized paranasal sinuses and mastoid air s paces are otherwise clear. IMPRESSION: No acute intracranial abnormality. Report Dictated By: Jeff Hendrix MD at 09/29/2018 4:30 AM Report E-Signed By: Jeff Hendirx MD at 09/29/2018 4:33 AM WSN:[id number]
[2018-09-29] MEDS ORDERED: IOPAMIDOL 76% 100 ML INFUS BTL 100 ML ONE (04:49)
[2018-09-29] MEDS ORDERED: NS(*) 0.9% 50 ML BAG 50 ML ONE ×2 (04:50→07:34)
--- NOTE | 2018-09-29 05:33 | RADIOLOGY IMAGING REPORT ---
FACILITY: [facility] PATIENT NAME: Tammy Quinn : 1975 MR: [id number] V: [id number] EXAM DATE: ORDERING PHYSICIAN: MINDA CABELLO TECHNOLOGIST: Location: [facility] Patient: Tammy Quinn : 1975 Visit/Account:[id number] Date of Sevice: 09/29/2018 ADDENDUM #1 ADDENDUM: In rereview of the angiogram there is a punctate hypodensity within the right supraclinoid ICA, sagit felecia image 120 series 10, axial image 252 series 7. This finding may represent an artifact within the vessel. A tiny nonocclusive thrombus within the right supraclinoid ICA cannot be entirely excluded. Results were called to MINDA CABELLO on 09/29/2018 5:57 AM. Report Dictated By: Toi Burt MD at 09/29/2018 5:43 AM Report E-Signed By: Toi Burt MD at 09/29/2018 5:57 AM ORIGINAL REPORT EXAMINATION: CT head and neck angiogram HISTORY: Altered mental status TECHNIQUE: CT head and neck angiogram was performed following the iv injection 75 mL Isovue-370. Sag ittal and coronal MPR and coronal and axial MIPS reformats generated. Stenosis of the internal caroti d arteries calculated using NASCET criteria. One of the following dose optimization techniques was utilized in the performance of this exam: autom ated exposure control; adjustment of the mA and/or kV according to patient size; or use of iterative reconstruction technique. Specific details can be referenced in the facility's radiology CT exam ope rational policy. COMPARISON: Head CT same day FINDINGS: Aortic arch and great vessels: Conventional anatomy. Normal. Cervical Right CCA / ICA: Normal. Cervical Left CCA / ICA: Normal. Vertebro-basilar: Normal. Internal carotid arteries from the skull base through cavernous carotid arteries: Normal. JUDY circulation: Normal. MCA circulation: Normal. [employer] circulation: Normal. PICA/AICA/superior cerebellar arteries: Normal. Venous sinuses and peripheral intracranial vasculature: Normal. Intracranial structures: Normal. Neck soft tissues: Subcentimeter right thyroid nodule is statistically benign. Hypodense musculature positioned adjacent to the left thyroid gland mimics thyroid nodularity, image 95. Upper chest: Normal. Head and neck osseous structures: No acute finding. IMPRESSION: Normal head and neck arterial vasculature without arterial thrombosis, stenosis, aneurysm or dissecti on. Results were called to MINDA CABELLO on 09/29/2018 5:28 AM. Report Dictated By: Toi Burt MD at 09/29/2018 5:12 AM Report E-Signed By: Toi Burt MD at 09/29/2018 5:29 AM WSN:[id number]
--- NOTE | 2018-09-29 05:34 | RADIOLOGY IMAGING REPORT ---
FAC[place] [facility] [place]IENT NAME: Tammy Quinn : 1975 MR: [id number] V: [id number] EXAM DATE: ORDERING PHYSICIAN: MINDA CABELLO TECHNOLOGIST: Location: [facility] Patient: Tammy Quinn : 1975 Visit/Account:[id number] Date of Sevice: 09/29/2018 ADDENDUM #1 ADDENDUM: In rereview of the angiogram there is a punctate hypodensity within the right supraclinoid ICA, sagit felecia image 120 series 10, axial image 252 series 7. This finding may represent an artifact within the vessel. A tiny nonocclusive thrombus within the right supraclinoid ICA cannot be entirely excluded. Results were called to MINDA CABELLO on 09/29/2018 5:57 AM. Report Dictated By: Toi Burt MD at 09/29/2018 5:43 AM Report E-Signed By: Toi Burt MD at 09/29/2018 5:57 AM ORIGINAL REPORT EXAMINATION: CT head and neck angiogram HISTORY: Altered mental status TECHNIQUE: CT head and neck angiogram was performed following the iv injection 75 mL Isovue-370. Sag ittal and coronal MPR and coronal and axial MIPS reformats generated. Stenosis of the internal caroti d arteries calculated using NASCET criteria. One of the following dose optimization techniques was utilized in the performance of this exam: autom ated exposure control; adjustment of the mA and/or kV according to patient size; or use of iterative reconstruction technique. Specific details can be referenced in the facility's radiology CT exam ope rational policy. COMPARISON: Head CT same day FINDINGS: Aortic arch and great vessels: Conventional anatomy. Normal. Cervical Right CCA / ICA: Normal. Cervical Left CCA / ICA: Normal. Vertebro-basilar: Normal. Internal carotid arteries from the skull base through cavernous carotid arteries: Normal. JUDY circulation: Normal. MCA circulation: Normal. ATM TECHNICIAN circulation: Normal. PICA/AICA/superior cerebellar arteries: Normal. Venous sinuses and peripheral intracranial vasculature: Normal. Intracranial structures: Normal. Neck soft tissues: Subcentimeter right thyroid nodule is statistically benign. Hypodense musculature positioned adjacent to the left thyroid gland mimics thyroid nodularity, image 95. Upper chest: Normal. Head and neck osseous structures: No acute finding. IMPRESSION: Normal head and neck arterial vasculature without arterial thrombosis, stenosis, aneurysm or dissecti on. Results were called to MINDA CABELLO on 09/29/2018 5:28 AM. Report Dictated By: Toi Burt MD at 09/29/2018 5:12 AM Report E-Signed By: Toi Burt MD at 09/29/2018 5:29 AM WSN:[id number]
[2018-09-29] MEDS ORDERED: ACETAMINOPHEN(*)1000 MG/100 ML 100 ML IVPB ONE (06:15)
--- NOTE | 2018-09-29 06:29 | EKG ---
FACILITY: [facility] - [place] PATIENT NAME: VÍCTOR LEMUS : [id number] MR: [id number] V: [id number] EXAM DATE: ORDERING PHYSICIAN: MINDA CABELLO TECHNOLOGIST: MIKE Granado Reason : Blood Pressure : / mmHG Vent. Rate : 087 BPM Atrial Rate : 087 BPM P-R Int : 162 ms QRS Dur : 088 ms QT Int : 394 ms P-R-T Axes : 019 005 025 degrees QTc Int : 474 ms Normal sinus rhythm Normal ECG No previous ECGs available Confirmed by RAUDEL TO ([id number]) on 09/29/2018 6:44:49 AM Referred By: Confirmed By:RAUDEL TO
[2018-09-29] MEDS ORDERED: cloNIDine HCL 0.1 MG TAB PO ONE (07:00)
[2018-09-29] MEDS ORDERED: GADOBENATE 529MG/1ML 15ML VIAL IVP ONE (07:34)
--- NOTE | 2018-09-29 09:21 | RADIOLOGY IMAGING REPORT ---
FACILITY: [facility] - [place] PATIENT NAME: Tammy Quinn : 1975 MR: [id number] V: [id number] EXAM DATE: [id number] ORDERING PHYSICIAN: MINDA CABELLO TECHNOLOGIST: Location: [facility] Patient: Tammy Quinn : 1975 Visit/Account:[id number] Date of Sevice: 09/29/2018 EXAMINATION: MRI Brain without intravenous contrast MRA Head without intravenous contrast MRA Neck without and with intravenous contrast HISTORY: Altered mental status. COMPARISON: Noncontrast head CT and CTA of the head and neck from same date. TECHNIQUE: MRI brain: Multi-planar, multi-sequence brain MRI was performed without IV gadolinium. MRA head: 4B-jhkg-iz-flight angiography was performed in the axial plane on the [place] with out IV gadolinium. MRA neck: Sagittal T1, axial T1 with fat saturation, axial 3-D [id number], axial joselyn fisp, and co april postcontrast MRA of the neck. 3-D reformats were created from the source data. Stenosis of the internal carotid arteries are calculated using NASCET criteria. CONTRAST: 15 mL of IV MultiHance FINDINGS: MRI BRAIN: Brain volume: Normal. Sagittal midline structures: Negative. Ventricles: Negative. Acute ischemic changes: None. Hemorrhage: None. Masses / edema: None. Pratt-white: Negative. White matter: Minimal nonspecific chronic white matter disease. Vessels: Negative. Extra-axial: None. Calvarium / scalp: Negative. Skull base: Negative. Visualized sinuses / orbits: Rightward nasal septal deviation anteriorly. Leftward nasal septal dev iation posteriorly. Mild mucosal thickening in the paranasal sinuses. Visualized upper neck: Negative. MRA NECK: Aortic arch / great vessel origins: Negative. Right common carotid: Negative. Right internal carotid: Negative. Right external carotid: Negative. Left common carotid: Negative. Left internal carotid: Negative. Left external carotid: Negative. Vertebrals / basilar: Negative. MRA HEAD: Petrous carotids: Negative. Carotid siphons / bifurcations: Negative. Anterior / Posterior communicating arteries: Negative. Anterior cerebral arteries: Negative. Middle cerebral arteries: Negative. Intra-cranial vertebral arteries: Negative. Basilar artery: Negative. PICA / AICA / SCA / ORACLE FUSION DEVELOPER: Negative. Non-angiographic Findings: None significant. IMPRESSION: 1. No acute intracranial abnormality. 2. Minimal nonspecific chronic white matter disease. 3. Normal MRA of the head and neck. 4. Rightward nasal septal deviation anteriorly. Leftward nasal septal deviation posteriorly. Mild mucosal thickening in the paranasal sinuses. Report Dictated By: Kenneth Escobar MD at 09/29/2018 9:05 A
--- NOTE | 2018-09-29 09:21 | RADIOLOGY IMAGING REPORT ---
FACILITY: [facility] [place]IENT NAME: Tammy Quinn : 1975 MR: [id number] V: [id number] EXAM DATE: [id number] ORDERING PHYSICIAN: MINDA CABELLO TECHNOLOGIST: Location: [facility] [place] Patient: Tammy Quinn : 1975 Visit/Account:[id number] Date of Sevice: 09/29/2018 EXAMINATION: MRI Brain without intravenous contrast MRA Head without intravenous contrast MRA Neck without and with intravenous contrast HISTORY: Altered mental status. COMPARISON: Noncontrast head CT and CTA of the head and neck from same date. TECHNIQUE: MRI brain: Multi-planar, multi-sequence brain MRI was performed without IV gadolinium. MRA head: 7D-gtbi-gu-flight angiography was performed in the axial plane on the [place] of [place] with out IV gadolinium. MRA neck: Sagittal T1, axial T1 with fat saturation, axial 3-D [id number]-fd-[id number], axial joselyn fisp, and co april postcontrast MRA of the neck. 3-D reformats were created from the source data. Stenosis of the internal carotid arteries are calculated using NASCET criteria. CONTRAST: 15 mL of IV MultiHance FINDINGS: MRI BRAIN: Brain volume: Normal. Sagittal midline structures: Negative. Ventricles: Negative. Acute ischemic changes: None. Hemorrhage: None. Masses / edema: None. Pratt-white: Negative. White matter: Minimal nonspecific chronic white matter disease. Vessels: Negative. Extra-axial: None. Calvarium / scalp: Negative. Skull base: Negative. Visualized sinuses / orbits: Rightward nasal septal deviation anteriorly. Leftward nasal septal dev iation posteriorly. Mild mucosal thickening in the paranasal sinuses. Visualized upper neck: Negative. MRA NECK: Aortic arch / great vessel origins: Negative. Right common carotid: Negative. Right internal carotid: Negative. Right external carotid: Negative. Left common carotid: Negative. Left internal carotid: Negative. Left external carotid: Negative. Vertebrals / basilar: Negative. MRA HEAD: Petrous carotids: Negative. Carotid siphons / bifurcations: Negative. Anterior / Posterior communicating arteries: Negative. Anterior cerebral arteries: Negative. Middle cerebral arteries: Negative. Intra-cranial vertebral arteries: Negative. Basilar artery: Negative. PICA / AICA / SCA / SURGICAL SUPPLY ASSISTANT: Negative. Non-angiographic Findings: None significant. IMPRESSION: 1. No acute intracranial abnormality. 2. Minimal nonspecific chronic white matter disease. 3. Normal MRA of the head and neck. 4. Rightward nasal septal deviation anteriorly. Leftward nasal septal deviation posteriorly. Mild mucosal thickening in the paranasal sinuses. Report Dictated By: Kenneth Escobar MD at 09/29/2018 9:05 A
--- NOTE | 2018-09-29 09:23 | RADIOLOGY IMAGING REPORT ---
FACILITY: [facility] PATIENT NAME: Tammy Quinn : 1975 MR: [id number] V: [id number] EXAM DATE: [id number] ORDERING PHYSICIAN: MINDA CABELLO TECHNOLOGIST: Location: [facility] - [place] Patient: Tammy Quinn : 1975 Visit/Account:[id number] Date of Sevice: 09/29/2018 EXAMINATION: MRI Brain without intravenous contrast MRA Head without intravenous contrast MRA Neck without and with intravenous contrast HISTORY: Altered mental status. COMPARISON: Noncontrast head CT and CTA of the head and neck from same date. TECHNIQUE: MRI brain: Multi-planar, multi-sequence brain MRI was performed without IV gadolinium. MRA head: 8V-ntsc-md-flight angiography was performed in the axial plane on the [place] with out IV gadolinium. MRA neck: Sagittal T1, axial T1 with fat saturation, axial 3-D [id number]-[id number], axial joselyn fisp, and co april postcontrast MRA of the neck. 3-D reformats were created from the source data. Stenosis of the internal carotid arteries are calculated using NASCET criteria. CONTRAST: 15 mL of IV MultiHance FINDINGS: MRI BRAIN: Brain volume: Normal. Sagittal midline structures: Negative. Ventricles: Negative. Acute ischemic changes: None. Hemorrhage: None. Masses / edema: None. Pratt-white: Negative. White matter: Minimal nonspecific chronic white matter disease. Vessels: Negative. Extra-axial: None. Calvarium / scalp: Negative. Skull base: Negative. Visualized sinuses / orbits: Rightward nasal septal deviation anteriorly. Leftward nasal septal dev iation posteriorly. Mild mucosal thickening in the paranasal sinuses. Visualized upper neck: Negative. MRA NECK: Aortic arch / great vessel origins: Negative. Right common carotid: Negative. Right internal carotid: Negative. Right external carotid: Negative. Left common carotid: Negative. Left internal carotid: Negative. Left external carotid: Negative. Vertebrals / basilar: Negative. MRA HEAD: Petrous carotids: Negative. Carotid siphons / bifurcations: Negative. Anterior / Posterior communicating arteries: Negative. Anterior cerebral arteries: Negative. Middle cerebral arteries: Negative. Intra-cranial vertebral arteries: Negative. Basilar artery: Negative. PICA / AICA / SCA / PHYS THER: Negative. Non-angiographic Findings: None significant. IMPRESSION: 1. No acute intracranial abnormality. 2. Minimal nonspecific chronic white matter disease. 3. Normal MRA of the head and neck. 4. Rightward nasal septal deviation anteriorly. Leftward nasal septal deviation posteriorly. Mild mucosal thickening in the paranasal sinuses. Report Dictated By: Kenneth Escobar MD at 09/29/2018 9:05 A
[2018-09-29 10:11] VITALS: BP 143/92
== END 2018-09-29 10:33 | disposition home or self-care (01) ==
LOC: ER 03:31
DX: R29.90 Unspecified symptoms and signs involving the nervous system (principal); R41.82 Altered mental status, unspecified; J34.2 Deviated nasal septum; E04.1 Nontoxic single thyroid nodule
CPT/HCPCS: 70450; 70496; 70498; 70544; 70549; 70551; 71045; 80305; 80320; 81001; 83605; 84703; 85025; 85610; 85730; 87088; 93005; 96361; 96365; 99284; A4353; A9577; J0131; J7030; J7050; Q9967; 82040; 82247; 82310; 82374; 82435; 82565; 82947; 84075; 84132; 84155; 84295; 84450; 84460; 84520

== ENCOUNTER → 2018-09-29 | Outpatient (CLI) | payer SELFPAY ==
[~2018-09-29] MED LIST changes: +NIFE-15 PO
== END ==
LOC: AMB 02:57
PROVIDERS: ATTEND Nurse Practitioner
DX: R51 Headache (principal); R41.82 Altered mental status, unspecified; R45.1 Restlessness and agitation
CPT/HCPCS: A0425; A0429

== ENCOUNTER → 2018-11-22 | Outpatient (CLI) | payer OTHER ==
[~2018-11-22] MED LIST changes: +NIFE-15 PO
== END ==
LOC: US 01:37
PROVIDERS: ATTEND Internal Medicine Cardiovascular Disease
DX: G45.9 Transient cerebral ischemic attack, unspecified (principal)
CPT/HCPCS: 93306

== ENCOUNTER 2018-12-26 13:27 | Outpatient (CLI) | payer OTHER ==
[~2018-12-26] VITALS: Ht 165.1 cm; Wt 117.9 kg
[2018-12-26 13:53] VITALS: BP_SYST 150; BP_SYST 180; BP_DIAS 102; BP_DIAS 89; Ht 165.1 cm; Wt 117.9 kg
[2018-12-26] MEDS ORDERED: LABE100T2 PO (14:16)
--- NOTE | 2018-12-26 16:06 | NUR ---
PT BROUGHT UP FROM ED ADMITTING WITH COMPLAINTS OF CONTRACTIONS AND LOSS OF CLEAR FLUID SINCE 2200 12/25/18. DENIES VAGINAL BLEEDING. PT STATES SHE HAS "FELT HER BABY MOVING." PT UNSURE OF DUE DATE, LAST MENSTRUAL PERIOD (PT STATES SHE STILL HAS MENSES MONTHLY), AND HAS NOT BEEN SEEN BY AN OB CARE PROVIDER FOR VISITS. PT STATES SHE HAS TESTED NEGATIVE WITH HCG URINE TEST, BUT THAT HER "NUMBERS ARE WEIRD AND INACCURATE." DENIES FEELING HEADACHE, BLURRY VISION, RUQ PAIN, EDEMA IN EXTREMITIES OR FACE, DENIES FEELING ANY NAUSEA, AND DEEP TENDON REFLEXES WERE 1+. UPON ADMISSION TO OB UNIT, NURSE RECEIVED ORDERS FROM PHYSICIAN REGARDING TESTING. PT TESTED NEGATIVE FOR WITH REGARDS TO BOTH URINE AND BLOOD TEST. DUE TO ELEVATED BLOOD PRESSURES ON ADMISSION ASSESSMENT AND ABDOMINAL PAIN, NURSE ADVISED PATIENT TO SEEK CARE IN THE EMERGENCY ROOM TO FIND OUT IF THERE IS ANYTHING UNDERLYING WHICH WOULD BE CAUSING THIS PAIN. NURSE INFORMED PATIENT OF TEST RESULTS VIA NEGATIVE HCG. THE PATIENT REPLIED, "YOU ARE UNEDUCATED AND MUST NOT KNOW ABOUT CRYPTIC PREGNANCIES. WHEN IT TURNS OUT THAT I HAVE PRE-ECLAMPSIA, WHO DO I NEED TO NILAY?" NURSE AGAIN INFORMED THE PATIENT THAT IT IS THE MEDICAL RECOMMENDATION TO BE SEEN IN THE ED TO DETERMINE IF THERE IS ANY UNDERLYING CAUSE TO THE ABDOMINAL PAIN AND LOSS OF FLUID. PT ASKED WHAT ELSE COULD HAVE CAUSED LOSS OF CLEAR, UNSCENTED FLUID. NURSE INFORMED HER THAT IT WAS MOST LIKELY URINE, AND BECAUSE OF THE TWO NEGATIVE TESTS IT WAS HIGHLY UNLIKELY THAT IT WAS AMNIOTIC FLUID CAUSING THE LOSS OF CLEAR FLUID. PT THEN ESCORTED BY NURSE OUT OF OB UNIT WITH WISHES TO BE DISCHARGED, THEN LATER CHANGED HER MIND AND DECIDED TO BE ASSESSED IN THE ED. REPORT GIVEN TO ED PHYSICIAN AND NURSES
[2018-12-26] MEDS ORDERED: TRAM-420 PO (18:33)
[2018-12-26] MEDS ORDERED: ONDA4TAB9 PO (18:33)
== END 2018-12-26 15:30 | disposition home or self-care (01) ==
LOC: OB 13:27 → UNDOADMIN 13:27 → L&D 13:27 → UNDODISIN 15:30 → L&D 15:30 → EDSTATUS 12-29 14:59
PROVIDERS: ATTEND Student in an Organized Health Care Education/Training Program
DX: O26.90 Pregnancy related conditions, unspecified, unspecified trimester (principal); R10.9 Unspecified abdominal pain
CPT/HCPCS: 36415; 81025; 84702; 99213

== ENCOUNTER 2018-12-26 15:23 | Emergency (ER) | payer OTHER ==
[2018-12-26 13:53] VITALS: Wt 117.9 kg
[~2018-12-26 15:23] MED LIST changes: +LABE100T2 PO
--- NOTE | 2018-12-26 15:31 | ER Report ---
History and Physical Time Seen By MD: 15:31 Hx. of Stated Complaint: Lower abdomianl pain HPI/ROS CHIEF COMPLAINT: Abdominal pain HISTORY OF PRESENT ILLNESS: 43 year old female presents to ED with lower abdominal pain. Patient originally thought she was , so upon arrival to the hospital, was sent to the women's and children's floor. They performed urine HCG and blood HCG and confirmed that she was not . They referred her to the ED for abdominal pain. The pain started last night around 10 PM. Reports cramping pain that feels like contractions. Reports pain is a 5 out of 10. Also reports lower back pain associated with the abdominal pain. She took ibuprofen with no relief. She also reports large amount of clear fluid that came out of her vagina last night. She thought it was her water breaking. Today, she reports she still feels fluid leaking from her vagina. Patient has felt this contraction like pain approximately one month ago, when she was not on her period, but did not follow-up with that pain. Patient has had recent heavy and painful periods that have started a few months ago. She went and saw her primary, Diana Marie, who sent her to the Women's clinic for further evaluation. She reports the Women's clinic did not find anything wrong. REVIEW OF SYSTEMS: Constitutional: No fever. Decreased appetite. Respiratory: No cough, no dyspnea. Cardiovascular: No chest pain, no palpitations. Gastrointestinal: Reports nausea. Reports lower abdominal pain as described above. No vomiting. Musculoskeletal: Reports mild lower back pain. Allergies: Coded Allergies: No Known Drug Allergies (Unverified , 06/04/18) Home Meds Active Scripts Tramadol Hcl (TRAMADOL HCL) 50 Mg Tablet, 50 MG PO Q4-6H PRN for PAIN, #6 TAB Prov:LIONEL QUIÑONES [facility] 12/26/18 Ondansetron 4 Mg Odt (ONDANSETRON 4 MG ODT) 4 Mg Tab.rapdis, 4 MG PO Q6H PRN for NAUSEA/VOMITING, #20 TAB Prov:LIONEL QUIÑONES [facility] 12/26/18 Reported Medications Labetalol Hcl (LABETALOL HCL) 100 Mg Tablet, 400 MG PO 12/26/18 Venlafaxine Hcl (EFFEXOR XR) 150 Mg Cap.er.24h, 150 MG PO QDAY 11/02/17 Discontinued Reported Medications Nifedipine (NIFEDIPINE ER) 30 Mg Tab.er.24, 30 MG PO QDAY 09/29/18 Past Medical/Surgical History Past medical hx of HTN, asthma, diarrhea/constipation, 20% hearing loss on left side, pre-diabetes, depression, and frequent urination at night. Past surgical hx of appendectomy. Reviewed Nurses Notes: Yes Hx Smoking: No Smoking Status: Never Smoker Exposure to Second Hand Smoke?: No Constitutional Vital Sign - Last 24 Hours 12/26/18 12/26/18 12/26/18 12/26/18 15:29 15:31 15:53 16:00 Temp 97.6 Pulse 76 80 Resp 18 B/P (MAP) 145/82 145/82 (103) 131/90 (104) Pulse Ox 96 95 O2 Delivery Room Air 12/26/18 12/26/18 12/26/18 16:30 16:53 17:00 Pulse 76 B/P (MAP) 126/74 (91) 117/75 (89) Pulse Ox 91 Physical Exam General Appearance: The patient is alert, has no immediate need for airway protection and no current signs of toxicity. Eyes: Pupils equal and round no injection. Respiratory: Chest is non tender, lungs are clear to auscultation. Cardiac: regular rate and rhythm Gastrointestinal: Abdomen tender to palpation of right and left lower quadrants. Abdomen is soft, no masses, bowel sounds normal. Musculoskeletal: Neck: Neck is supple and non tender. Extremities have full range of motion and are non tender. : On pelvic exam, cervix is closed, minimal amount of clear fluid noted around cervix, cervix pink, fishy odor noted. Patient states pelvic exam was very painful. Skin: No rashes or lesions. DIFFERENTIAL DIAGNOSIS: After history and physical exam differential diagnosis was considered for diverticulitis, appendicitis, UTI, bacterial vaginosis, yeast infection. Medical Decision Making Data Points Result Diagram: 12/26/18 1415 12/26/18 1415 Laboratory Hematology Test 12/26/18 14:15 12/26/18 15:30 Red Blood Count 4.30 M/uL (4.17-5.56) Mean Corpuscular Volume 88.8 fL (80.0-96.0) Mean Corpuscular Hemoglobin 30.3 pg (26.0-33.0) Mean Corpuscular Hemoglobin Concent 34.1 g/dL (32.0-36.0) Red Cell Distribution Width 14.1 % (11.5-14.5) Mean Platelet Volume 8.6 fL (7.2-11.1) Neutrophils (%) (Auto) 57.1 % (39.4-72.5) Lymphocytes (%) (Auto) 36.3 % (17.6-49.6) Monocytes (%) (Auto) 3.8 % (4.1-12.4) Eosinophils (%) (Auto) 2.1 % (0.4-6.7) Basophils (%) (Auto) 0.7 % (0.3-1.4) Nucleated RBC Relative Count (auto) 0.1 /100WBC Neutrophils # (Auto) 4.7 K/uL (2.0-7.4) Lymphocytes # (Auto) 3.0 K/uL (1.3-3.6) Monocytes # (Auto) 0.3 K/uL (0.3-1.0) Eosinophils # (Auto) 0.2 K/uL (0.0-0.5) Basophils # (Auto) 0.1 K/uL (0.0-0.1) Nucleated RBC Absolute Count (auto) 0.01 K/uL Sodium Level 141 mmol/L (137-145) Potassium Level 4.2 mmol/L (3.5-5.0) Chloride Level 104 mmol/L (98-107) Carbon Dioxide Level 26 mmol/L (22-31) Blood Urea Nitrogen 7 mg/dl (7-18) Creatinine 0.70 mg/dl (0.52-1.04) Glomerular Filtration Rate Calc > 60.0 Random Glucose 102 mg/dl (75-110) Calcium Level 9.1 mg/dl (8.4-10.2) Total Bilirubin 0.7 mg/dl (0.2-1.3) Aspartate Amino Transf (AST/SGOT) 62 U/L (0-35) Alanine Aminotransferase (ALT/SGPT) 100 U/L (0-56) Alkaline Phosphatase 71 U/L (0-126) Total Protein 7.3 g/dl (6.3-8.2) Albumin 4.3 g/dl (3.5-5.0) Urine Color Yellow Urine Clarity Clear Urine pH 7.0 pH (4.8-9.5) Urine Specific [place] 1.016 Urine Protein Negative mg/dL (NEGATIVE) Urine Glucose (UA) Negative mg/dL (NEGATIVE) Urine Ketones Negative mg/dL (NEGATIVE) Urine Blood Negative (NEGATIVE) Urine Nitrite Negative (NEGATIVE) Urine Bilirubin Negative (NEGATIVE) Urine Urobilinogen Negative mg/dL (0.2-1.9) Urine Leukocyte Esterase Negative (NEGATIVE) Urine RBC 1 /HPF (0-2/HPF) Urine WBC 1 /HPF (0-5/HPF) Urine Squamous Epithelial Cells Many /LPF (</=FEW) Urine Bacteria Few /HPF (NONE-FEW) Urine Mucus Few /HPF (NONE-FEW) Chemistry Test 12/26/18 14:15 12/26/18 15:30 White Blood Count 8.3 k/uL (4.5-11.0) Red Blood Count 4.30 M/uL (4.17-5.56) Hemoglobin 13.0 g/dL (12.0-16.0) Hematocrit 38.1 % (34.0-47.0) Mean Corpuscular Volume 88.8 fL (80.0-96.0) Mean Corpuscular Hemoglobin 30.3 pg (26.0-33.0) Mean Corpuscular Hemoglobin Concent 34.1 g/dL (32.0-36.0) Red Cell Distribution Width 14.1 % (11.5-14.5) Platelet Count 338 K/uL (150-450) Mean Platelet Volume 8.6 fL (7.2-11.1) Neutrophils (%) (Auto) 57.1 % (39.4-72.5) Lymphocytes (%) (Auto) 36.3 % (17.6-49.6) Monocytes (%) (Auto) 3.8 % (4.1-12.4) Eosinophils (%) (Auto) 2.1 % (0.4-6.7) Basophils (%) (Auto) 0.7 % (0.3-1.4) Nucleated RBC Relative Count (auto) 0.1 /100WBC Neutrophils # (Auto) 4.7 K/uL (2.0-7.4) Lymphocytes # (Auto) 3.0 K/uL (1.3-3.6) Monocytes # (Auto) 0.3 K/uL (0.3-1.0) Eosinophils # (Auto) 0.2 K/uL (0.0-0.5) Basophils # (Auto) 0.1 K/uL (0.0-0.1) Nucleated RBC Absolute Count (auto) 0.01 K/uL Glomerular Filtration Rate Calc > 60.0 Calcium Level 9.1 mg/dl (8.4-10.2) Total Bilirubin 0.7 mg/dl (0.2-1.3) Aspartate Amino Transf (AST/SGOT) 62 U/L (0-35) Alanine Aminotransferase (ALT/SGPT) 100 U/L (0-56) Alkaline Phosphatase 71 U/L (0-126) Total Protein 7.3 g/dl (6.3-8.2) Albumin 4.3 g/dl (3.5-5.0) Urine Color Yellow Urine Clarity Clear Urine pH 7.0 pH (4.8-9.5) Urine Specific [place] 1.016 Urine Protein Negative mg/dL (NEGATIVE) Urine Glucose (UA) Negative mg/dL (NEGATIVE) Urine Ketones Negative mg/dL (NEGATIVE) Urine Blood Negative (NEGATIVE) Urine Nitrite Negative (NEGATIVE) Urine Bilirubin Negative (NEGATIVE) Urine Urobilinogen Negative mg/dL (0.2-1.9) Urine Leukocyte Esterase Negative (NEGATIVE) Urine RBC 1 /HPF (0-2/HPF) Urine WBC 1 /HPF (0-5/HPF) Urine Squamous Epithelial Cells Many /LPF (</=FEW) Urine Bacteria Few /HPF (NONE-FEW) Urine Mucus Few /HPF (NONE-FEW) Urinalysis Test 12/26/18 15:30 Urine Color Yellow Urine Clarity Clear Urine pH 7.0 pH (4.8-9.5) Urine Specific [place] 1.016 Urine Protein Negative mg/dL (NEGATIVE) Urine Glucose (UA) Negative mg/dL (NEGATIVE) Urine Ketones Negative mg/dL (NEGATIVE) Urine Blood Negative (NEGATIVE) Urine Nitrite Negative (NEGATIVE) Urine Bilirubin Negative (NEGATIVE) Urine Urobilinogen Negative mg/dL (0.2-1.9) Urine Leukocyte Esterase Negative (NEGATIVE) Urine RBC 1 /HPF (0-2/HPF) Urine WBC 1 /HPF (0-5/HPF) Urine Squamous Epithelial Cells Many /LPF (</=FEW) Urine Bacteria Few /HPF (NONE-FEW) Urine Mucus Few /HPF (NONE-FEW) Microbiology Microbiology Date/Time Source Procedure Growth Status 12/26/18 17:15 Vaginal Wet Prep - Final Complete EKG/Imaging Imaging Location: [facility] Patient: Tammy Quinn : 1975 Visit/Account:[id number] Date of Sevice: 12/26/2018 CT abdomen and pelvis with IV contrast Indication: Lower abdominal pain. Comparison: 06/04/2018.. Technique: Axial CT images were obtained through the abdomen and pelvis during injection of nonionic iodinated intravenous contrast. Reformatted coronal and sagittal images were also obtained. One of the following dose optimization techniques was utilized in the performance of this exam: Automated exposure control; adjustment of the mA and/or kV according to the patient's size; or use of an iterative reconstruction technique. Specific details can be referenced in the facility's radiology CT exam operational policy. Contrast: 95 ml of Isovue-370 IV contrast. Findings: Lower lung baxter: Limited views lower lung field are unremarkable. Liver: Mildly diffuse decreased attenuation consistent with fatty infiltration or chronic disease with focal fatty sparing around gallbladder fossa. No focal lesions. The vasculature appears patent. Biliary: Gallbladder appears unremarkable as well as the intra and extra hepatic biliary system. Pancreas: Normal appearance. Spleen: Normal appearance. Adrenal glands: Unremarkable. Kidneys / retroperitoneum: No evidence of nephrolithiasis or hydronephrosis. No focal abnormality. Bowel / peritoneum / mesenteries: There are couple diverticula in sigmoid colon without pericolonic inflammation. The colon shows no other focal normality. Status post appendectomy. Small bowel shows no focal normality or obstruction. The stomach is unremarkable. No free air, free fluid, fluid collections or areas of inflammation. Small umbilical hernia is again present containing fat. Lymph node assessment: No pathologic adenopathy identified. Pelvic structures: Pelvic structures visualized within normal limits. Vessels: No significant atherosclerotic calcifications seen throughout a nonaneurysmal abdominal aorta and branches. Musculoskeletal / Body wall: No acute or aggressive osseous abnormality. Stable anterior spondylolisthesis of L5 over S1 of 6 mm due to degenerative changes. Mild degenerative changes otherwise seen in the spine. IMPRESSION: 1. No acute intra-abdominal abnormality 2. Mild sigmoid diverticulosis without radiographic indication of diverticulitis. 3. Other chronic stable findings as above. ED Course/Re-evaluation ED Course Upon arrival to the ED, patient admitted to an exam room, hx and physical obtained, differentials considered. Patient originally thought she was , so upon arrival to the hospital, was sent to the women's and children's floor. They performed urine HCG and blood HCG and confirmed that she was not . They referred her to the ED for abdominal pain. The pain started last night around 10 PM. Reports cramping pain that feels like contractions. Reports pain is a 5 out of 10. Also reports lower back pain associated with the abdominal pain. She took ibuprofen with no relief. She also reports large amount of clear fluid that came out of her vagina last night. She thought it was her water br eaking. Today, she reports she still feels fluid leaking from her vagina. Patient has felt this contraction like pain approximately one month ago, when she was not on her period, but did not follow-up with that pain. Patient has had recent heavy and painful periods that have started a few months ago. She went and saw her primary, Diana Marie, who sent her to the Women's clinic for further evaluation. She reports the Women's clinic did not find anything wrong. On exam, heart regular, lungs clear to auscultation. Tenderness with palpation to right and left lower quadrants. IV started. CBC, CMP, UA, and CT of abdomen and pelvis. 4mg zofran given. No acute intrabdominal abnormality noted on CT. CBC and CMP unremarkable. UA negative for UTI. Since labs and CT came back normal, discussed with patient about doing a pelvic exam. Patient consented. On pelvic exam, cervix is closed, minimal amount of clear fluid noted around cervix, cervix pink, fishy odor noted. Patient states pelvic exam was very painful. On wet prep, no clue cells, no trich, no WBC, and no yeast. Discussed with patient normal results and that there was nothing acute that needed to be addressed tonight, however it would be good for her to follow-up with the Women's clinic. Since she had such severe pain with the pelvic exam, is having lower abdominal/pelvic pain, and is having heavy and menstrual periods, this cou ld be a reproductive disorder such as endometriosis. She will be sent home with zofran and tramadol for nausea and pain. Patient agrees with plan of care. Decision to Disposition Date: Dec 26, 2018 Decision to Disposition Time: 18:27 Depart Departure Latest Vital Signs Vital Signs Date Time Temp Pulse Resp B/P (MAP) Pulse Ox O2 Delivery O2 Flow Rate FiO2 12/26/18 17:00 117/75 (89) 12/26/18 16:53 76 91 12/26/18 15:29 97.6 18 Room Air Impression: Primary Impression: Pelvic pain Condition: Condition Unchanged Disposition: HOME OR SELF-CARE Referrals: ANTONETTE GRAY (PCP) RADHA MARIO MD New Scripts Tramadol Hcl (TRAMADOL HCL) 50 Mg Tablet 50 MG PO Q4-6H PRN for PAIN, #6 TAB Prov: LIONEL QUIÑONES 12/26/18 Ondansetron 4 Mg Odt (ONDANSETRON 4 MG ODT) 4 Mg Tab.rapdis 4 MG PO Q6H PRN for NAUSEA/VOMITING, #20 TAB Prov: LIONEL QUIÑONES 12/26/18 Patient Instructions: Pelvic Pain in Women (ED) Additional Instructions: Please drink plenty of water and get plenty of rest. You may take the tramadol as needed for pain. You may take zofran every 6 hours as needed for nausea. Please follow-up with your primary care provider and/or the women's clinic in the next two days regarding your pain. Please return to the ER if you pain significantly worsens, you have significant vaginal bleeding outside of your period, you develop a fever, or for any other concern. LIONEL QUIÑONES Dec 26, 2018 15:31
[2018-12-26] MEDS ORDERED: ONDANSETRON 4 MG/2 ML VIAL IVP ONE (15:50)
[2018-12-26 15:59] LABS: PLATELET COUNT, AUTOMATED 338 K/uL (150-450)
[2018-12-26] MEDS ORDERED: IOPAMIDOL 76% 100 ML INFUS BTL 100 ML ONE (16:21)
--- NOTE | 2018-12-26 16:47 | RADIOLOGY IMAGING REPORT ---
FACILITY: [facility] PATIENT NAME: Tammy Quinn : 1975 MR: [id number] V: [id number] EXAM DATE: ORDERING PHYSICIAN: LIONEL QUIÑONES TECHNOLOGIST: Location: [facility] [place] Patient: Tammy Quinn : 1975 Visit/Account:[id number] Date of Sevice: 12/26/2018 CT abdomen and pelvis with IV contrast Indication: Lower abdominal pain. Comparison: 06/04/2018.. Technique: Axial CT images were obtained through the abdomen and pelvis during injection of nonioni c iodinated intravenous contrast. Reformatted coronal and sagittal images were also obtained. One of the following dose optimization techniques was utilized in the performance of this exam: Autom ated exposure control; adjustment of the mA and/or kV according to the patient's size; or use of an i terative reconstruction technique. Specific details can be referenced in the facility's radiology C T exam operational policy. Contrast: 95 ml of Isovue-370 IV contrast. Findings: Lower lung baxter: Limited views lower lung field are unremarkable. Liver: Mildly diffuse decreased attenuation consistent with fatty infiltration or chronic disease wit h focal fatty sparing around gallbladder fossa. No focal lesions. The vasculature appears patent. Biliary: Gallbladder appears unremarkable as well as the intra and extra hepatic biliary system. Pancreas: Normal appearance. Spleen: Normal appearance. Adrenal glands: Unremarkable. Kidneys / retroperitoneum: No evidence of nephrolithiasis or hydronephrosis. No focal abnormality. Bowel / peritoneum / mesenteries: There are couple diverticula in sigmoid colon without pericolonic i nflammation. The colon shows no other focal normality. Status post appendectomy. Small bowel shows no focal normality or obstruction. The stomach is unremarkable. No free air, free fluid, fluid collections or areas of inflammation. Small umbilical hernia is again present containing fat. Lymph node assessment: No pathologic adenopathy identified. Pelvic structures: Pelvic structures visualized within normal limits. Vessels: No significant atherosclerotic calcifications seen throughout a nonaneurysmal abdominal aort a and branches. Musculoskeletal / Body wall: No acute or aggressive osseous abnormality. Stable anterior spondylolist hesis of L5 over S1 of 6 mm due to degenerative changes. Mild degenerative changes otherwise seen in the spine. IMPRESSION: 1. No acute intra-abdominal abnormality 2. Mild sigmoid diverticulosis without radiographic indication of diverticulitis. 3. Other chronic stable findings as above. Report Dictated By: Jt Laboy at 12/26/2018 4:34 PM Report E-Signed By: Jt Laboy at 12/26/2018 4:42 PM WSN:[id number]
[2018-12-26 18:30] VITALS: BP 152/101
[2018-12-26] MEDS ORDERED: TRAM-420 PO (18:33)
[2018-12-26] MEDS ORDERED: ONDA4TAB9 PO (18:33)
[2018-12-26] MEDS ORDERED: traMADol 50 MG TAB TH 2 TAB/BOTTLE PO ONE (18:35)
[2018-12-26] MEDS ORDERED: ONDANSETRON 4 MG ODT TH SL ONE (18:35)
== END 2018-12-26 18:48 | disposition home or self-care (01) ==
LOC: ER 15:44
DX: R10.2 Pelvic and perineal pain (principal)
CPT/HCPCS: 74177; 81001; 85025; 87210; 96374; 99284; C9399; J2405; Q9967; S0119; 82040; 82247; 82310; 82374; 82435; 82565; 82947; 84075; 84132; 84155; 84295; 84450; 84460; 84520